=== PATIENT | female | born 1960 | race Caucasian/White ===

== ENCOUNTER → 2018-02-26 12:27 | Outpatient (REF) | payer BC, SELFPAY ==
[2018-02-26 22:09] LABS: ALT 24 U/L (12-78); AST 18 U/L (15-37); Alkaline Phosphatase 63 U/L (46-116); Anion Gap 10.6 mmol/L (3-11); BUN 11 mg/dL (7-18); Bilirubin, Total 0.5 mg/dL (0.2-1.0); CO2 26.4 mmol/L (21.0-32.0); CREATININE 0.69 mg/dL (0.55-1.02); Calcium 8.8 mg/dL (8.5-10.1); Chloride 103 mmol/L (98-107); Glucose 92 mg/dL (70-100); Potassium 4.1 mmol/L (3.5-5.1); Sodium 140 mmol/L (136-145); Total Protein 7.3 g/dL (6.4-8.2)
[2018-02-26 22:37] LABS: Amylase 38 U/L (25-115); Lipase 133 U/L (73-393)
[2018-02-26 22:41] LABS: Abs Immature Grans 0.01 k/cumm (0.0-0.09); Absolute Basophil Count 0.03 k/cumm (0.0-0.2); Absolute Eosinophil Count 0.04 k/cumm (0.0-0.7); Absolute Lymphocyte Count 2.36 k/cumm (1.2-3.4); Absolute Monocyte Count 0.33 k/cumm (0.11-0.7); Absolute Neutrophil Count 2.91 k/cumm (1.2-6.7); Basophils % 0.5; Eosinophils % 0.7; HCT 39.7 % (36.0-46.0); HGB 13.6 g/dL (12.0-15.5); Immature Grans % 0.2; Lymphocytes % 41.5; Mean Corp. HGB Concentration 34.3 g/dL (32.0-36.0); Mean Corpuscular Hemoglobin 31.5 pg (27.0-33.0); Mean Corpuscular Volume 91.9 fL (80-95); Mean Platelet Volume 10.9 fL (8.0-11.0); Monocytes % 5.8; Neutrophils % 51.3; Platelet Count 218 x1000/uL (130-400); RBC 4.32 m/cumm (4.00-5.20); White Blood Cell Count 5.68 k/cumm (4.4-10.8)
== END ==
LOC: NCHCN 12:27
PROVIDERS: Visit Provider Nurse Practitioner Family
DX: R51 Headache (principal); R10.9 Unspecified abdominal pain; R10.11 Right upper quadrant pain; G47.00 Insomnia, unspecified
CPT/HCPCS: 80053; 83690; 82150; 85025

== ENCOUNTER → 2018-03-03 00:21 | Outpatient (CLI) | payer BC, SELFPAY ==
--- NOTE | 2018-03-03 10:29 | DI.REPORT_ITS ---
SYMPTOM/DIAGNOSIS: RUQ ABD PAIN, R10.11, RT FLANK PAIN R10.9 ABDOMINAL, RENAL ULTRASOUND: Routine examination was performed. Comparison is . Comparison MRI is The abdominal aortic is ectatic measuring 2.9 cm maximal. The IVC is unremarkable. The liver is normal in size. There is a 1.4 x 17 x 1.4 cm simple cyst at the right lobe. No other hepatic lesions are seen. The gallbladder is negative sonographically. There is no biliary ductal dilatation. The common duct measures 0.5 cm. The tail of the pancreas was not visualized due to overlying bowel. The remainder of the pancreas was unremarkable. The spleen is unremarkable. The kidneys are unremarkable. The urinary bladder pre-void volume is 211 cc. The bladder wall is smooth. Both ureteral jets were identified. Post void urinary bladder volume was less than 10 cc. IMPRESSION: 1. No evidence of a renal mass or obstructive uropathy. 2. 1.7 cm simple right hepatic cyst.
== END ==
PROVIDERS: Visit Provider Nurse Practitioner Family
DX: R10.11 Right upper quadrant pain (principal); R10.31 Right lower quadrant pain; K76.89 Other specified diseases of liver
CPT/HCPCS: 76770; 76700

== ENCOUNTER 2018-09-01 09:16 | Outpatient (REF) | payer BC, SELFPAY ==
[2018-09-01 13:25] LABS: ALT 23 U/L (12-78); AST 21 U/L (15-37); Albumin 4.1 g/dL (3.4-5.0); Alkaline Phosphatase 64 U/L (46-116); Anion Gap 7.4 mmol/L (3-11); BUN 15 mg/dL (7-18); Bilirubin, Total 0.8 mg/dL (0.2-1.0); CO2 30.6 mmol/L (21.0-32.0); CREATININE 0.77 mg/dL (0.55-1.02); Calcium 9.6 mg/dL (8.5-10.1); Chloride 101 mmol/L (98-107); Glucose 88 mg/dL (70-100); Lipase 141 U/L (73-393); Magnesium 1.9 mg/dL (1.8-2.4); Potassium 4.4 mmol/L (3.5-5.1); Sodium 139 mmol/L (136-145); Total Protein 7.7 g/dL (6.4-8.2)
[2018-09-01 14:13] LABS: Vitamin B12 590 pg/mL (193-986)
[2018-09-02 11:49] LABS: Lyme Ab w Rflx to Lyme Confirm Negative
== END 2018-09-01 09:36 ==
LOC: NCHCN 09:16
PROVIDERS: Visit Provider Nurse Practitioner Family
DX: R51 Headache (principal); K21.9 Gastro-esophageal reflux disease without esophagitis; K76.89 Other specified diseases of liver; G47.00 Insomnia, unspecified; M54.5 Low back pain; W57.XXXA Bitten or stung by nonvenomous insect and other nonvenomous arthropods, initial encounter; T14.8XXA Other injury of unspecified body region, initial encounter
CPT/HCPCS: 80053; 83690; 82607; 83735; 86618

== ENCOUNTER 2018-09-08 01:58 | Outpatient (CLI) | payer BC, SELFPAY ==
--- NOTE | 2018-09-08 10:48 | DI.MAMMO_ITS ---
SYMPTOM/DIAGNOSIS: SCREENING, Z12.31 MAMMOGRAMS: Mammograms were interpreted according to the usual protocol including computer analysis with CAD system, tomosynthesis and C view imaging. Comparison is made with prior examinations. Breast density, Category C. No suspicious masses or microcalcifications are seen. There is no definite evidence of malignancy. IMPRESSION: Negative mammogram. Routine screening is recommended. Category 1. MQSA ASSESSMENT OF FINDINGS: Negative. Category 1. Patient will receive a letter notifying them of these results. Bi-RADS category C. The breasts are heterogeneously dense, which may obscure small masses.
== END 2018-09-08 02:18 ==
PROVIDERS: PCP Internal Medicine; Visit Provider Nurse Practitioner Family
DX: Z12.31 Encounter for screening mammogram for malignant neoplasm of breast (principal)
CPT/HCPCS: 77063; 77067

== ENCOUNTER 2018-12-01 15:07 | Outpatient (REF) | payer BC, SELFPAY | END 2018-12-01 15:27 | LOC: NCHCN 15:07 | PROVIDERS: PCP Internal Medicine; Visit Provider Specialist/Technologist Athletic Trainer | DX: J02.9 Acute pharyngitis, unspecified (principal) | CPT/HCPCS: 87070 ==

== ENCOUNTER 2019-03-16 01:04 | Outpatient (CLI) | payer BC, SELFPAY ==
--- NOTE | 2019-03-16 07:38 | DI.US_ITS ---
SYMPTOM/DIAGNOSIS: LIVER CYST, K76.89 ABDOMINAL ULTRASOUND: 03/16 The visualized liver parenchyma is normal in appearance with incidental finding of two hepatic cysts, both in the right lobe, the largest in the dome of the liver measuring about 19 mm in greatest diameter. There is no evidence of cholelithiasis or biliary dilatation. Abdominal aorta and IVC are of normal diameter. Pancreas appears intact as visualized. Kidneys and spleen appear normal. CONCLUSION: Negative abdominal ultrasound. No evidence of cholelithiasis.
== END 2019-03-16 01:24 ==
PROVIDERS: PCP Internal Medicine; Visit Provider Nurse Practitioner Family
DX: K76.89 Other specified diseases of liver (principal)
CPT/HCPCS: 76700

== ENCOUNTER 2019-05-04 01:39 | Outpatient (CLI) | payer BC, SELFPAY ==
--- NOTE | 2019-05-04 17:21 | DI.DEXA_ITS ---
EXAM: XR DEXA BONE DENSITY W/WO RAJIV INDICATION: OSTEOPENIA M85.80. TECHNIQUE: 2D digital imaging was performed. FINDINGS: The scanogram is unremarkable. For the left hip, a T-score of -1.0 and a Z-score of 0 indicate osteopenia and an increased fracture risk and when compared with the prior study of 08/16/2014, there has been an interval -3.9 percent dec rease in mineralization. For the lumbar spine, a T-score -1.7 and a Z-score -0.2 indicate osteopenia and an increased fracture risk and represent a -0.6 percent interval decrease in mineralization when compared with the prior study of 08/16/2014. For the left hip, a T-score of -1.0 and a Z-score of 0 are consistent with osteopenia and a -3.9 percent interval decrease in mineralization. For the left forearm ,T-score -1.6 and a Z-score of -0.3 are consistent with normal mineralization.
== END 2019-05-04 01:59 ==
PROVIDERS: PCP Internal Medicine; Visit Provider Nurse Practitioner Family
DX: M85.88 Other specified disorders of bone density and structure, other site (principal)
CPT/HCPCS: 77080

== ENCOUNTER 2019-11-01 10:58 | Emergency (ER) | payer BC, SELFPAY ==
[2019-11-01] VITALS (16 sets, daily range): BP systolic 114–180; BP diastolic 80–105; PULSE 66–87; RESP 12–20; TEMP 36.6; O2SAT 95–99
--- NOTE | 2019-11-01 11:09 | ED.GENADUL_ITS ---
Discharge Plan Disposition Patient Disposition: HOME Condition: Improving Discharge Details Chief Complaint: Chest Pain Clinical Impression: Viral upper respiratory illness, Pleurisy Primary Care Provider: Halie Graham ED Provider: José Miguel Ariza Home Meds and New Rx's Prescriptions: Continued calcium carbonate [Calcium 500] 500 MG tablet 500 mg PO DAILY RF: 0 cholecalciferol (vitamin D3) [Vitamin D3] 400 UNIT capsule 400 unit PO DAILY RF: 0 Daily Multiple 1 EACH tablet 1 tab-cap PO DAILY RF: 0 melatonin 3 MG tablet 3 mg PO PRN RF: 0 omeprazole 20 MG capsule,delayed release(DR/EC) 20 mg PO DAILY RF: 0 zolpidem [Ambien CR] 6.25 MG tablet,ext release multiphase 6.25 mg PO HS RF: 0 amitriptyline 50 MG tablet 50 mg PO HS Qty: 30 RF: 3 ibuprofen 200 MG tablet 1 tab PO PRN PRNRF: 0 Discharge Instructions Instructions: Pleurisy (ED), Upper Respiratory Infection (ED) Additional Instructions: Please proceed to the outpatient coded testing tent. Please follow-up in clinic with Tasha Graham for recheck in the next 5 to 10 days time. Home to rest today. Small, frequent sips of fluid so that you maintain hydration. Tylenol and ibuprofen as needed for pain. Continue your regularly prescribed medications and finish the previously prescribed course of the doxycycline. Stand Alone Forms: POSITIVE COVID-19/TO BE TESTED Medical Decision Making 59-year-old female presents from home. She feels she has had an upper respirat ory illness is approximately second week of September. She was exposed to her son who traveled to [place] for sporting event and then developed a fever. She states she did have some initial upper respiratory symptoms with sinus drainage and some production of green sputum. This then progressed to some achy anterior chest pain over the past few days. She was placed on doxycycline by her outpatient clinic 6 days ago. She arrives to the ER afebrile with unremarkable vital signs and normal oxygenation. Differential diagnosis includes pneumonitis, viral syndrome, must exclude ACS or PE. Patient IV access established, she was referred for chest x-ray and laboratories. EKG is reassuring. Diagnostic studies: CBC unremarkable, chemistries reassuring, troponin initially negative, lipase 98. D-dimer negative at 225. Chest x-ray without acute findings, see formal report. Patient improving without significant intervention. Patient observed and repeat troponin obtained and negative. Patient is improved, she is appropriate for outpatient management. She may have persistent pleurisy from adequately treated pneumonitis and will have her finish the course of doxycycline. She will mandate ongoing surveillance as an outpatient. Outpatient coronavirus testing ordered. Lab Data Lab results reviewed: Yes I reviewed the patient's lab results. Labs: Laboratory Results - last 24 hr 11/01/19 11/01/19 11/01/19 11:24 11:24 11:24 WBC 5.27 RBC 4.48 Hgb 14.5 Hct 40.8 MCV 91.1 MCH 32.4 MCHC 35.5 RDW 12.2 Plt Count 239 MPV 10.2 Immature Gran % 0.2 Neutrophils % 56.9 Lymphocytes % 34.7 Monocytes % 7.6 Eosinophils % 0.2 Basophils % 0.4 Absolute Neutrophils 3.00 Absolute Lymphocytes 1.83 Absolute Monocytes 0.40 Absolute Eosinophils 0.01 Absolute Basophils 0.02 D-Dimer Sodium 136 Potassium 3.6 Chloride 99 Carbon Dioxide 26.9 Anion Gap 10.1 BUN 12 Creatinine 0.81 Estimated GFR/1.73 m2 >= 60.00 Glucose 109 H Calcium 9.6 Magnesium 1.8 Total Bilirubin 0.9 AST 20 ALT 27 Alkaline Phosphatase 65 Troponin I < 0.05 Total Protein 8.3 H Albumin 4.7 Lipase 98 11/01/19 11:24 WBC RBC Hgb Hct MCV MCH MCHC RDW Plt Count MPV Immature Gran % Neutrophils % Lymphocytes % Monocytes % Eosinophils % Basophils % Absolute Neutrophils Absolute Lymphocytes Absolute Monocytes Absolute Eosinophils Absolute Basophils D-Dimer 225 Sodium Potassium Chloride Carbon Dioxide Anion Gap BUN Creatinine Estimated GFR/1.73 m2 Glucose Calcium Magnesium Total Bilirubin AST ALT Alkaline Phosphatase Troponin I Total Protein Albumin Lipase ECG Data Attestation: I personally reviewed and interpreted this ECG (s) as follows: Interpretation: EKG obtained at 1113 hrs. reveals normal sinus rhythm with a rate of 77, the QRS is narrow, there is T wave inversions in leads III and aVF as well as V3. This was present on previous comparison of January 11, 2015 in which the T wave inversions of V3 and lead III were present. There is no ST segment elevation HPI General Mode of arrival: ambulatory . Date/Time Provider Initiated Documentation: 11/01/19 11:00 . Limitations to Documentation: no limitations . Information obtained by: patient . History of Present Illness 59 year old F presents to the emergency department with the chief complaint of URI symptoms since September, on doxycycline, referred from primary care office, described as moderate, Quality is described as dull, and is localized to the chest. Patient reports no radiation. Patient started experiencing this day(s) and it has been constant. No relieving factors improve symptom(s), No exacerbating factors reported . Patient notes chest pain, cough and shortness of breath. Patient did receive the following treatments prior to arrival, other (Doxycycline) Related Data Home Medications Medication Instructions Recorded Confirmed Daily Multiple 1 tab-cap PO DAILY tab-cap 04/26/13 11/01/19 calcium carbonate [Calcium 500] 500 mg PO DAILY 04/26/13 11/01/19 cholecalciferol (vitamin D3) 400 unit PO DAILY 04/26/13 11/01/19 [Vitamin D3] melatonin 3 mg PO PRN 10/07/14 11/01/19 ibuprofen 1 tab PO PRN PRN 12/30/14 11/01/19 omeprazole 20 mg PO DAILY tab-cap 04/15/17 11/01/19 zolpidem [Ambien CR] 6.25 mg PO HS 04/15/17 11/01/19 amitriptyline 50 mg PO HS #30 tab-cap 07/01/17 11/01/19 Previous Rx's Medication Instructions Recorded amitriptyline 50 mg PO HS #30 tab-cap 07/01/17 Allergies Allergy/AdvReac Type Severity Reaction Status Date / Time venom-honey bee Allergy Intermediate Hives Verified 11/01/19 11:29 trazodone Allergy Mild Verified 11/01/19 11:29 narcotics Allergy Mild Nausea Uncoded 11/01/19 11:29 Review of Systems Narrative: Began after sick contact with family member who had gone to [place] in early September. See HPI, reports self quarantine, no known sick contacts. 8 systems reviewed and otherwise negative [facility] Medical History (Updated 11/01/19 @ 14:42 by José Miguel Ariza MD) Atrophic vaginitis (Acute 08/09/14) Barretts esophagus Barretts esophagus (Acute 08/09/14) Chronic low back pain (Acute 08/09/14) Family history of osteoporosis (Acute 08/09/14) First degree uterine prolapse (Acute 10/07/14) Pancreatitis (Resolved) Surgical History (Updated 05/13/18 @ 14:35 by [employer] DC) Colonoscopy - MAC EGD - MAC Tonsillectomy and adenoidectomy Social History Smoking/Tobacco Use Status: Never Alcohol Intake: current Alcohol Intake frequency: 0-2 drinks per day Drug use: Never Substance use type: does not use Do you feel safe at home: Yes Do you feel safe in your relationship?: Yes Exam Narrative Exam Narrative: GEN: awake, alert, oriented 3. Pleasant, well groomed, interactive. HEAD: Normocephalic, atraumatic ENT: Mucous membranes moist, oropharynx unremarkable, External ear exam unremarkable EYES: PERRL, EOMI NECK: Full ROM, no TRISTIN, no menigismus CHEST/RESP: Nontender, clear to auscultation bilateral, no wheeze/rhonchi/rales CARDIOVASCULAR: RRR, no murmur, rub lavelle. 2+ Rad pulse bilateral ABDOMEN: Soft, nontender, no mass. +Bowel sounds EXT: Full ROM, no edema, no rash Neuro: Grossly normal neurologic exam, conversant, interactive. Psych: Speech fluent, thoughts congruent, affect normal
--- NOTE | 2019-11-01 11:15 | DI.RAD_ITS ---
EXAM: XR PORTABLE CHEST AP CLINICAL HISTORY: cough, chest pain TECHNIQUE: COMPARISON: CHEST 2 VIEWS PA,LAT from 12/01/2015 FINDINGS: The heart is not enlarged. The lungs are clear with some pulmonary hyperinflation consistent with CO PD. No pleural effusion seen on this frontal film. IMPRESSION: No evidence of acute process.
--- NOTE | 2019-11-01 11:26 | NUR.NOTE ---
Nursing Note: Pt has been using a chemo cream on right side of neck for concern of precancerous lesion. Pt states has been using this x approx 2 weeks. Does not recall cream name.
[2019-11-01] MEDS: Normal Saline 1,000 ML 125 ML IV (11:35)
[2019-11-01 11:49] LABS: Abs Immature Grans 0.01 k/cumm (0.0-0.09); Absolute Basophil Count 0.02 k/cumm (0.0-0.2); Absolute Eosinophil Count 0.01 k/cumm (0.0-0.7); Absolute Lymphocyte Count 1.83 k/cumm (1.2-3.4); Basophils % 0.4; Eosinophils % 0.2; HCT 40.8 % (36.0-46.0); HGB 14.5 g/dL (12.0-15.5); Immature Grans % 0.2 %; Lymphocytes % 34.7; Mean Corp. HGB Concentration 35.5 g/dL (32.0-36.0); Mean Corpuscular Hemoglobin 32.4 pg (27.0-33.0); Mean Corpuscular Volume 91.1 fL (80-95); Mean Platelet Volume 10.2 fL (8.0-11.0); Monocytes % 7.6; Neutrophils % 56.9; Platelet Count 239 x1000/uL (130-400); RBC 4.48 m/cumm (4.00-5.20); RBC Distribution Width 12.2 % (11.7-14.6); White Blood Cell Count 5.27 k/cumm (4.4-10.8)
[2019-11-01 12:03] LABS: ALT 27 U/L (14-59); AST 20 U/L (15-37); Albumin 4.7 g/dL (3.4-5.0); Alkaline Phosphatase 65 U/L (46-116); Anion Gap 10.1 mmol/L (3-11); BUN 12 mg/dL (7-18); Bilirubin, Total 0.9 mg/dL (0.2-1.0); CO2 26.9 mmol/L (21.0-32.0); CREATININE 0.81 mg/dL (0.55-1.02); Calcium 9.6 mg/dL (8.5-10.1); Chloride 99 mmol/L (98-107); Glucose 109 mg/dL (74-106); Magnesium 1.8 mg/dL (1.8-2.4); Potassium 3.6 mmol/L (3.5-5.1); Sodium 136 mmol/L (136-145); Total Protein 8.3 g/dL (6.4-8.2)
[2019-11-01 12:06] LABS: Troponin I < 0.05 ng/Ml (<0.06)
[2019-11-01 12:12] LABS: Lipase 98 U/L (73-393)
[2019-11-01 12:26] LABS: D-Dimer 225 ng/mlFEU (<500)
[2019-11-01 14:38] LABS: Troponin I < 0.05 ng/Ml (<0.06)
== END 2019-11-01 15:03 | disposition home or self-care (01) ==
PROVIDERS: Emergency Provider Emergency Medicine; PCP Nurse Practitioner Family
DX: J06.9 Acute upper respiratory infection, unspecified (principal); R09.1 Pleurisy
CPT/HCPCS: 80053; 83690; 93005; 99284; U0003; 71045; 83735; 84484; 85025; 85379; 93010; 99283

== ENCOUNTER 2019-11-01 15:33 | Outpatient (CLI) | payer BC, SELFPAY ==
[2019-11-03 20:04] LABS: SARS-CoV-2 RNA Undetected (Undetected); SARS-CoV-2 Specimen Source Nasopharynx
== END 2019-11-01 15:53 ==
PROVIDERS: PCP Nurse Practitioner Family; Visit Provider Nurse Practitioner Family
DX: Z11.59 Encounter for screening for other viral diseases (principal)
CPT/HCPCS: U0003

== ENCOUNTER 2019-12-30 00:53 | Outpatient (CLI) | payer BC, SELFPAY ==
--- NOTE | 2019-12-30 | DI.RAD_ITS ---
EXAM: XR CHEST 2V PA LATERAL CLINICAL HISTORY: PULMONARY HYPERINFLATION,J98.4,CHEST DISCOMFORT,R07.89 TECHNIQUE: 2D digital imaging was performed. COMPARISON: CR XR PORTABLE CHEST AP from 11/01/2019 FINDINGS: The heart is not enlarged. The lungs are clear and well expanded. No pleural effusion seen. Mediastin al contours appear intact. IMPRESSION: Normal chest
== END 2019-12-30 01:13 ==
PROVIDERS: PCP Nurse Practitioner Family; Visit Provider Nurse Practitioner Family
DX: R07.89 Other chest pain (principal); J98.4 Other disorders of lung
CPT/HCPCS: 71046

== ENCOUNTER 2020-03-14 10:08 | Outpatient (REF) | payer BC, SELFPAY ==
[2020-03-14 22:58] LABS: ALT 21 U/L (14-59); AST 16 U/L (15-37); Albumin 4.4 g/dL (3.4-5.0); Alkaline Phosphatase 71 U/L (46-116); Anion Gap 11.2 mmol/L (3-11); BUN 12 mg/dL (7-18); Bilirubin, Total 0.9 mg/dL (0.2-1.0); CO2 26.8 mmol/L (21.0-32.0); CREATININE 0.69 mg/dL (0.55-1.02); Calcium 9.5 mg/dL (8.5-10.1); Chloride 103 mmol/L (98-107); Glucose 92 mg/dL (74-106); Potassium 4.2 mmol/L (3.5-5.1); Sodium 141 mmol/L (136-145); Total Protein 7.7 g/dL (6.4-8.2)
[2020-03-14 23:12] LABS: Amylase 37 U/L (25-115); Lipase 108 U/L (73-393)
[2020-03-16 09:47] LABS: HIV-1/2 Ag & Ab Screen Negative (Negative)
== END 2020-03-14 10:28 ==
LOC: NCHCN 10:08
PROVIDERS: PCP Nurse Practitioner Family; Visit Provider Nurse Practitioner Family
DX: K21.9 Gastro-esophageal reflux disease without esophagitis (principal); J98.4 Other disorders of lung; J02.9 Acute pharyngitis, unspecified; R07.89 Other chest pain; R05 Cough; M54.5 Low back pain; R51 Headache; G47.00 Insomnia, unspecified; Z11.4 Encounter for screening for human immunodeficiency virus [HIV]
CPT/HCPCS: 80053; 83690; 87389; 82150

== ENCOUNTER 2020-04-12 13:43 | Outpatient (REF) | payer BC, SELFPAY ==
[2020-04-15 08:37] LABS: Patient Race White; SARS-CoV-2 RNA Undetected (Undetected); SARS-CoV-2 Specimen Source Nasal
== END 2020-04-12 14:03 ==
LOC: NCHCN 13:43
PROVIDERS: PCP Nurse Practitioner Family; Visit Provider Nurse Practitioner Family
DX: Z20.828 Contact with and (suspected) exposure to other viral communicable diseases (principal)
CPT/HCPCS: U0003

== ENCOUNTER 2020-05-18 11:28 | Outpatient (REF) | payer BC, SELFPAY ==
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
== END 2020-05-18 11:48 ==
LOC: LBN 11:28
PROVIDERS: PCP Nurse Practitioner Family; Visit Provider Nurse Practitioner Family
DX: Z12.4 Encounter for screening for malignant neoplasm of cervix (principal)
CPT/HCPCS: 88142

== ENCOUNTER 2020-05-30 16:17 | Outpatient (REF) | payer BC, SELFPAY | END 2020-05-30 16:37 | LOC: NCHCN 16:17 | PROVIDERS: PCP Nurse Practitioner Family; Visit Provider Nurse Practitioner Family | DX: R30.0 Dysuria (principal) | CPT/HCPCS: 87077; 87086; 87186 ==

== ENCOUNTER 2020-05-31 01:19 | Outpatient (CLI) | payer BC, SELFPAY ==
--- NOTE | 2020-05-31 15:44 | DI.MAMMO_ITS ---
EXAM: MG MAMMO SCREENING CLINICAL HISTORY: screening TECHNIQUE: Bilateral full field digital CC and MLO mammographic images were obtained with 3D tomosyn thesis and utilizing computer aided detection (CAD). COMPARISON: Available for comparison. FINDINGS: Masses/Architectural Distortion: None seen. Microcalcifications: No suspicious pleomorphic-type are seen. Skin Thickening/Nipple Retraction: None. IMPRESSION: 1. No significant interval change with no specific features of malignancy noted. 2. Unless there is more urgent need, screening mammography is recommended, as per [place] [employer] guidelines. BI-RADS Category 1 - Negative Breast Density - Category C - Heterogeneously dense The mammogram demonstrates the patient's breast tissue is dense. Dense breast tissue is very common a nd is not abnormal but dense breast tissue can make it harder to find cancer on a mammogram. Also, de nse breast tissue may increase their breast cancer risk. This information about the result of the [facility] mogram report was provided to the patient to raise their awareness. Use this report when you speak wi th the patient about their risks for breast cancer, which includes their family history. At that time , you may recommend for more screening tests (Ultrasound or MRI) as they might be useful based on the ir risk. A negative radiographic report should not delay biopsy if a dominant or clinically suspicious mass is present. Up to ten percent of cancers are not identified on mammography. A negative report may reinforce clinical impression. Adenosis and dense breasts may obscure an underlying neoplasm. False positive reports average 6 to 10%. Patient will receive a letter notifying them of these results.
== END 2020-05-31 01:39 ==
PROVIDERS: PCP Nurse Practitioner Family; Visit Provider Nurse Practitioner Family
DX: Z12.31 Encounter for screening mammogram for malignant neoplasm of breast (principal)
CPT/HCPCS: 77063; 77067

== ENCOUNTER 2020-06-13 00:42 | Outpatient (CLI) | payer BC, SELFPAY ==
--- NOTE | 2020-06-13 06:45 | DI.US_ITS ---
EXAM: US PELVIS TRANSVAGINAL CLINICAL HISTORY: Pelvic Cramping and pelvic pain,r10.2. TECHNIQUE: Transabdominal and transvaginal pelvic ultrasound was performed using standard protocol. COMPARISON: US PELVIS TRANSVAG from 05/11/2013 FINDINGS: KIDNEYS: Kidneys are symmetric in size. No evidence of renal calculi. No evidence of hydronephrosis. No renal mass or cyst identified. UTERUS: Position: Anteverted. Size: 6.2 long by 2.7 AP by 4.5 transverse cm Endometrium: 0.1 cm. Normal for patient's menstrual status. Myometrium: 2.4 x 2 x 2.3 cm hypoechoic mass in the posterior body of the uterus consistent with a fi broid. Cervix: There is a 0.7 x 0.8 x 1 cm ill-defined hypoechoic area in the cervix. It shows no internal blood flow. OVARIES: Right: 2 x 1.2 x 1 cm Cyst or mass: None. Left: 1.4 x 0.8 x 0.9 cm Cyst or mass: None. DOPPLER: Color: Symmetric and uniform flow to both ovaries. No hyperemia. CUL-DE-SAC: Free fluid: None. Other: None. IMPRESSION: 1. Normal sonographic appearance of the kidneys. 2. 2.4 cm posterior uterine fibroid. 3. 1 cm ill-defined avascular hypoechoic area in the cervix. Follow-up is recommended. This may rep resent a repeat pelvic ultrasound or an MRI of the pelvis. 4. Unremarkable bilateral ovaries. DATA REPOSITORY:
== END 2020-06-13 01:02 ==
PROVIDERS: PCP Nurse Practitioner Family; Visit Provider Nurse Practitioner Family
DX: D25.9 Leiomyoma of uterus, unspecified (principal); R10.2 Pelvic and perineal pain
CPT/HCPCS: 76830; 76856

== ENCOUNTER 2020-06-15 13:50 | Outpatient (REF) | payer BC, SELFPAY | END 2020-06-15 14:10 | LOC: NCHCN 13:50 | PROVIDERS: PCP Nurse Practitioner Family; Visit Provider Nurse Practitioner Family | DX: R30.0 Dysuria (principal) | CPT/HCPCS: 87086 ==

== ENCOUNTER 2020-09-19 21:48 | Outpatient (REF) | payer BC, SELFPAY ==
[2020-09-19 13:44] LABS: HCT 39.7 % (36.0-46.0); HGB 13.5 g/dL (11.2-15.7)
[2020-09-19 14:18] LABS: ALT 23 U/L (14-59); AST 17 U/L (15-37); Albumin 4.1 g/dL (3.4-5.0); Alkaline Phosphatase 59 U/L (46-116); BUN 14 mg/dL (7-18); Bilirubin, Total 0.7 mg/dL (0.2-1.0); CREATININE 0.8 mg/dL (0.55-1.02); Calcium 9.2 mg/dL (8.5-10.1); Calculated LDL 114 mg/dL (<100); Chloride 103 mmol/L (98-107); Cholesterol 213 mg/dL (<200); Glucose 89 mg/dL (74-106); HDL Cholesterol 89 mg/dL (40-60); Potassium 4.3 mmol/L (3.5-5.1); Sodium 140 mmol/L (136-145); Total Protein 7.4 g/dL (6.4-8.2); Triglyceride 53 mg/dL (<150); Vitamin B12 553 pg/mL (193-986)
[2020-09-19 14:33] LABS: Lipase 133 U/L (73-393)
[2020-09-21 04:40] LABS: Vitamin D 25 Total 37.3 ng/ml (30-100)
== END 2020-09-19 21:49 | disposition home or self-care (01) ==
LOC: NCHCN 21:48
PROVIDERS: PCP Nurse Practitioner Family; Visit Provider Nurse Practitioner Family
DX: E78.5 Hyperlipidemia, unspecified (principal); K21.9 Gastro-esophageal reflux disease without esophagitis; R51.9 Headache, unspecified; G47.00 Insomnia, unspecified; R30.0 Dysuria; R19.7 Diarrhea, unspecified; J02.9 Acute pharyngitis, unspecified; M54.5 Low back pain
CPT/HCPCS: 80053; 80061; 82306; 83690; 82607; 83735; 85014; 85018

== ENCOUNTER 2020-09-29 14:02 | Outpatient (REF) | payer BC, SELFPAY ==
[2020-09-30 16:55] LABS: COVID-19 RT-PCR UVMMC Result Negative (Negative)
== END 2020-09-29 14:03 | disposition home or self-care (01) ==
LOC: NCHCN 14:02
PROVIDERS: PCP Nurse Practitioner Family; Visit Provider Nurse Practitioner Family
DX: Z20.822 Contact with and (suspected) exposure to COVID-19 (principal)
CPT/HCPCS: U0003

== ENCOUNTER 2020-11-03 03:25 | Outpatient (CLI) | payer BC, SELFPAY ==
--- NOTE | 2020-11-03 07:30 | DI.US_ITS ---
EXAM: MG MAMMO DIAGNOSTIC UNI and U/S breast LT limited CLINICAL HISTORY: LT BREAST PAIN. TECHNIQUE: Craniocaudal and mediolateral oblique Full Field Digital Mammography views with Computer Aided Diagnosis followed by Tomosynthesis and left breast ultrasound. COMPARISON: Comparison with prior examinations. FINDINGS: Mammography/Tomosynthesis: Masses/Architectural Distortion: None seen. Microcalcifictions: No suspicious pleomorphic-type are seen. Skin Thickening/Nipple Retraction: None. Left breast US: Echotexture: Normal appearance of the glandular tissue. Shadowing: No suspicious foci. Cyst: None. Solid lesions: None seen. Ductal dilation: None. IMPRESSION: 1. No evidence of malignancy is noted. 2. Unless there is more urgent need, follow-up screening mammography is recommended, as per [employer] guidelines. 3. The findings were discussed with the patient on the date of the examination. BI-RADS Category 1 - Negative Breast Density - Category C - Heterogeneously dense Breast density Category C or D implies that the patient has dense breast tissue. Dense breast tissue can make it harder to find cancer on a mammogram. Dense breast tissue is also associated with an incr eased risk of breast cancer. This information about the result of the mammogram report was provided to the patient to raise their awareness. Use this report when you speak with the patient about their risks for breast cancer, which includes their family history. At that time, you may recommend additional screening tests (Ultrasoun d or MRI) as these tests may add significant information. A negative radiographic report should not delay biopsy if a dominant or clinically suspicious mass is present. Up to ten percent of cancers are not identified on mammography. A negative report may reinforce clinical impression. Adenosis and dense breasts may obscure an underlying neoplasm. False positive reports average 6 to 10%. Patient will receive a letter notifying them of these results.
== END 2020-11-03 03:45 ==
PROVIDERS: PCP Nurse Practitioner Family; Visit Provider Obstetrics & Gynecology
DX: N64.4 Mastodynia (principal)
CPT/HCPCS: 76642; 77061; 77065; G0279

== ENCOUNTER 2021-02-27 15:07 | Outpatient (REF) | payer BC, SELFPAY ==
[2021-02-28 15:32] LABS: COVID-19 RT-PCR UVMMC Result Negative (Negative)
== END 2021-02-27 15:08 | disposition home or self-care (01) ==
LOC: NCHCN 15:07
PROVIDERS: PCP Nurse Practitioner Family; Visit Provider Nurse Practitioner Family
DX: Z20.822 Contact with and (suspected) exposure to COVID-19 (principal)
CPT/HCPCS: U0003

== ENCOUNTER 2021-04-03 01:16 | Outpatient (CLI) | payer BC, SELFPAY ==
--- NOTE | 2021-04-03 | DI.DEXA_ITS ---
Exam(s) XR DEXA BONE DENSITY W/WO RAJIV EXAM: XR DEXA BONE DENSITY W/WO RAJIV CLINICAL HISTORY: OSTEOPENIA,M85.80 TECHNIQUE: IPextreme C densitometer COMPARISON: DX DEXA BONE DENSITY WITH RAJIV from 08/16/2014 DX DEXA BONE DENSITY WITH RAJIV from 08/16/2014 CR XR DEXA BONE DENSITY W/WO RAJIV from 05/04/2019 FINDINGS: Lateral view of the thoracic and lumbar spine shows no evidence of compression fractures. Bone mineral density measurements of the lumbar spine correspond to a total T-score of -1.8, consist ent with osteopenia. This is not significantly changed from the previous exams. Bone mineral density measurements of the left hip correspond to a total T-score of -1.2 . The femora l neck T-score is -1.8 in the osteopenic range. This represents a 2.3 percent decrease when compar ed with 2018 and a 6.2 percent decrease when compared with 2014. The FRAX 10 year fracture risk of major osteoporotic fracture is calculated at 8.8 percent. The 10 y ear risk of hip fracture is calculated at 1 percent. The left forearm bone mineral density measurements correspond to a T-score of the distal 3rd of -0.6, in the normal range. This is not significantly changed from previous exams. . IMPRESSION: Stable osteopenia of the lumbar spine. Osteopenia of the left hip with mild decrease when compared w ith the previous exams.
== END 2021-04-03 01:36 ==
PROVIDERS: PCP Nurse Practitioner Family; Visit Provider Nurse Practitioner Family
DX: M85.89 Other specified disorders of bone density and structure, multiple sites (principal)
CPT/HCPCS: 77080

== ENCOUNTER 2021-06-13 00:24 | Outpatient (CLI) | payer BC, SELFPAY ==
--- NOTE | 2021-06-13 06:30 | DI.MAMMO_ITS ---
Exam(s) MAMMO SCREENING EXAM: MAMMO SCREENING CLINICAL HISTORY: screening,Z12.39 TECHNIQUE: Mammograms were interpreted according to the usual protocol including computer analysis w [employer] CAD system, tomosynthesis and C-view imaging. COMPARISON: FINDINGS: The breasts are heterogeneously dense. No dominant mass or clumped microcalcification is identified in either breast. The current examination is compared with previous examinations including May 2020 and there has been no gross interval change in appearance comparison with previous studies. IMPRESSION: No specific evidence of malignancy at this time. Routine screening examinations are suggested at yea rly intervals due to the family history of breast carcinoma. BI-RADS Category 1 - Negative Breast Density - Category C - Heterogeneously dense
== END 2021-06-13 00:44 ==
PROVIDERS: PCP Nurse Practitioner Family; Visit Provider Obstetrics & Gynecology
DX: Z12.31 Encounter for screening mammogram for malignant neoplasm of breast (principal); Z80.3 Family history of malignant neoplasm of breast
CPT/HCPCS: 77063; 77067

== ENCOUNTER 2021-07-05 09:31 | Outpatient (REF) | payer BC, SELFPAY ==
[2021-07-05 15:21] LABS: ALT 22 U/L (14-59); AST 15 U/L (15-37); Alkaline Phosphatase 76 U/L (46-116); Amylase 30 U/L (25-115); Anion Gap 8.6 mmol/L (3-11); BUN 9 mg/dL (7-18); Bilirubin, Total 0.5 mg/dL (0.2-1.0); CO2 30.4 mmol/L (21.0-32.0); CREATININE 0.7 mg/dL (0.55-1.02); Calcium 9.2 mg/dL (8.5-10.1); Chloride 102 mmol/L (98-107); Glucose 93 mg/dL (74-106); Lipase 64 U/L (73-393); Potassium 3.7 mmol/L (3.5-5.1); Sodium 141 mmol/L (136-145); TSH (W/Ref FT4) 2.24 uIU/mL (0.36-3.74); Total Protein 7.3 g/dL (6.4-8.2)
== END 2021-07-05 09:32 | disposition home or self-care (01) ==
LOC: NCHCN 09:31
PROVIDERS: PCP Nurse Practitioner Family; Visit Provider Nurse Practitioner Family
DX: R11.2 Nausea with vomiting, unspecified (principal); R10.9 Unspecified abdominal pain
CPT/HCPCS: 80053; 83690; 82150; 84443

== ENCOUNTER 2021-07-26 19:09 | Outpatient (REF) | payer BC, SELFPAY ==
[2021-07-27 21:04] LABS: COVID-19 RT-PCR UVMMC Result Negative (Negative)
== END 2021-07-26 19:10 | disposition home or self-care (01) ==
LOC: NCHCN 19:09
PROVIDERS: PCP Nurse Practitioner Family; Visit Provider Nurse Practitioner Family
DX: Z20.822 Contact with and (suspected) exposure to COVID-19 (principal)
CPT/HCPCS: U0003

== ENCOUNTER 2021-09-18 17:20 | Emergency (ER) | payer BC, SELFPAY ==
[2021-09-18] VITALS (14 sets, daily range): BP systolic 121–140; BP diastolic 77–108; PULSE 64–99; RESP 12–22; TEMP 35.8; O2SAT 95–99
--- NOTE | 2021-09-18 17:38 | ED.GENADUL_ITS ---
Discharge Plan Discharge Details Chief Complaint: Allergic Primary Care Provider: Halie Graham ED Provider: Kamala Reilly Home Meds and New Rx's Prescriptions: No Action estradiol [Vagifem] 10 mcg tablet 10 mcg vaginal .twice weekly 90 Days Qty: 30 3RF famotidine [Pepcid] 20 mg tablet 20 mg PO DAILY 0RF Myrbetriq 25 mg tablet extended release 24 hr 25 mg PO DAILY Qty: 90 1RF calcium carbonate [Calcium 500] 500 MG tablet 500 mg PO DAILY 0RF cholecalciferol (vitamin D3) [Vitamin D3] 400 UNIT capsule 400 unit PO DAILY 0RF Daily Multiple 1 EACH tablet 1 tab-cap PO DAILY 0RF fluticasone propionate [Flonase Allergy Relief] 50 mcg/actuation spray,suspension 1 spray intranasal BID 0RF Rx Instructions: administer into each nostril loratadine [Claritin] 10 mg tablet 10 mg PO DAILY 0RF triamcinolone acetonide 0.1 % lotion 1 applic topical DAILY 0RF Metagenics Bone Builderwith Magnesium PO BID 0RF Ostera Bokloywzh-Qvckfewofvxkzz-F-K) 0.5 tab PO BID 0RF zaleplon 10 mg capsule 20 mg PO QHS PRN0RF Rx Instructions: must avoid high-fat meal/food immediately before taking dose ibuprofen 200 MG tablet 1 tab PO PRN PRN0RF Discharge Data Discharge Date/Time-TO BE ENTERED AT DEPARTURE: 09/18/21 19:22 Medical Decision Making Patient is a pleasant 61 year old female presenting today with c/c of allergic reaction. She states that she started Bactrim one hour prior to arrival for UTI. About 15 min after taking the medication PO, she developed bug bites on her abdomen. States she then began to feel stuffy. Denies SOB. No GI upset. States she was sneezing frequently but that this has seemed to subside. HAs not taken any benadryl or OTC yet. No previous reaction to sulfa drugs that she is aware of. On exam, patient appears anxious. She has no respiratory distress. Has some nasal congestion. No intraoral abnormality, no swelling of the posterior oropharynx. Neck is supple with no notable swelling. Lungs are clear with no wheezing, rales or rhonchi. Normal cardiac exam. Patient has 3 small welts on her abdomen, none is noted elsewhere. Patient is scratching at her palms and states that her palms and soles are quite itchy at this time. At this time, patient does not appear to be in anaphylaxis. It has been 1 hour since her medications Reviewed previous micro jhoana yaneli been aragon sensitive. Will change to Keflex, called this into [facility] at patietn request. Will also call in prednisone for her acute reaction. Patient given benadryl, solu-medrol and famotidine. Continue to monitor the patient, her urticaria resolved. Patient is having slight runny nose stilt been stopped with the throat clearing. She reports that overall she is feeling much improved although fatigued, likely from the Benadryl. Lungs remain clear. No continued rash. Patient feels ready for discharge at this time. We will continue with supportive measures including hydration and Benadryl at home. We will continue with steroids to help prevent any recurrent reaction. I have asked the patient to stop the Bactrim and we will transition her to Keflex. As indicated above, these were called into [facility]. Strict return precautions were discussed. Encourage close follow-up with primary care. All of her questions and concerns were addressed and she is in agreement this plan. HPI General Date/Time Provider Initiated Documentation: 09/18/21 17:21 . Limitations to Documentation: no limitations . Information obtained by: patient and RN notes reviewed . History of Present Illness 61 year old F presents to the emergency department with the chief complaint of allergic reaction after first dose of Bactrim, described as moderate, Quality is described as other (itching to hands and feet), and is localized to the abdomen, left, right, upper extremity and lower extremity. Patient started experiencing this hour(s) (1) and it has been constant. improves with No relieving factors improve symptom(s), Medication worsens symptoms . Patient notes denies chest pain and cough. Related Data Home Medications Medication Instructions Recorded Confirmed calcium carbonate 500 mg calcium 500 mg PO DAILY 04/26/13 09/18/21 (1,250 mg) tablet (Calcium 500) cholecalciferol (vitamin D3) 10 400 unit PO DAILY 04/26/13 09/18/21 mcg (400 unit) capsule (Vitamin D3) multivitamin-ferrous 1 tab-cap PO DAILY tab-cap 04/26/13 09/18/21 fumarate-folic acid 18 mg-400 mcg tablet (Daily Multiple) ibuprofen 200 mg tablet 1 tab PO PRN PRN 12/30/14 09/18/21 famotidine 20 mg tablet (Pepcid) 20 mg PO DAILY 05/18/20 09/18/21 estradiol 10 mcg vaginal tablet 10 mcg VAGINAL .twice weekly 90 07/03/20 09/18/21 (Vagifem) Days #30 tab Metagenics Bone Builderwith PO BID 10/04/20 03/20/21 Magnesium Ostera 0.5 tab PO BID 10/04/20 09/18/21 Xisisoomp-Dbqqlgdkanoafm-P-K) fluticasone propionate 50 1 spray INTRANASAL BID 10/04/20 09/18/21 mcg/actuation nasal spray,suspension (Flonase Allergy Relief) loratadine 10 mg tablet (Claritin) 10 mg PO DAILY 10/04/20 09/18/21 triamcinolone acetonide 0.1 % 1 applic TOPICAL DAILY 10/04/20 09/18/21 lotion zaleplon 10 mg capsule 20 mg PO QHS PRN cap 10/04/20 09/18/21 mirabegron 25 mg tablet,extended 25 mg PO DAILY #90 tab 04/23/21 09/18/21 release 24 hr (Myrbetriq) Previous Rx's Medication Instructions Recorded estradiol 10 mcg vaginal tablet 10 mcg VAGINAL .twice weekly 90 07/03/20 (Vagifem) Days #30 tab mirabegron 25 mg tablet,extended 25 mg PO DAILY #90 tab 04/23/21 release 24 hr (Myrbetriq) Allergies Allergy/AdvReac Type Severity Reaction Status Date / Time sulfamethoxazole Allergy Intermediate Hives Unverified 09/18/21 17:51 [From Sulfamethoxazole-Trimethoprim] trimethoprim Allergy Intermediate Hives Unverified 09/18/21 17:51 [From Sulfamethoxazole-Trimethoprim] venom-honey bee Allergy Intermediate Hives Verified 09/18/21 17:27 trazodone Allergy Mild Verified 09/18/21 17:27 codeine Allergy Verified 09/18/21 17:27 oxybutynin AdvReac Verified 09/18/21 17:27 narcotics Allergy Mild Nausea Uncoded 09/18/21 17:27 General Stated Complaint: Allergic HERSON: 2 Review of Systems Constitutional Constitutional: Reports as per HPI, Denies chills, Denies fever(s) and Denies headache(s) Eyes Eyes: Reports as per HPI ENT Ears, Nose, Mouth, and Throat: Reports as per HPI and Denies headache(s) Cardiovascular Cardiovascular: Denies chest pain Respiratory Respiratory: Reports as per HPI Gastrointestinal Gastrointestinal: Reports as per HPI Integumentary/Breasts Skin/Breast: Reports as per HPI Neurologic Neurologic: Denies headache(s) PFSH All Active Problems OAB (overactive bladder) (Acute) Breast pain, left (Acute) Rhinitis (Acute) Lower urinary tract symptoms (LUTS) (Acute) Atopic dermatitis (Acute) Actinic keratosis (Acute) Osteopenia (Acute) Ear pain (Acute) Generalized headaches (Acute) Back pain (Acute) Abdominal cramping (Acute) First degree uterine prolapse (Acute 10/07/14) Atrophic vaginitis (Acute 08/09/14) Barretts esophagus (Acute 08/09/14) Chronic low back pain (Acute 08/09/14) Family history of osteoporosis (Acute 08/09/14) H/O surgical procedure (Chronic) a. bilateral bunionectomies b. tonsillectomy and adenoidectomy c. previous colonoscopies and EGDs Medical History Abdominal cramping Actinic keratosis Atopic dermatitis Atrophic vaginitis (08/09/14) Back pain Barretts esophagus Barretts esophagus (08/09/14) Bladder infection Breast pain, left Chronic low back pain (08/09/14) Ear pain Elevated blood sugar Family history of osteoporosis (08/09/14) First degree uterine prolapse (10/07/14) Generalized headaches Insomnia Lower urinary tract symptoms (LUTS) OAB (overactive bladder) Osteopenia Pancreatitis Rhinitis Sore throat Surgical History Colonoscopy - MAC EGD - MAC Tonsillectomy and adenoidectomy Family History Mother Osteoporosis Father Diabetes Social History Smoking/Tobacco Use Status: Never Smoking risk assessment performed?: Yes Alcohol Intake: current Alcohol Intake frequency: 0-2 drinks per day Drug use: Never Substance use type: does not use Do you feel safe at home: Yes Do you feel safe in your relationship?: Yes Exam Const General: cooperative, well developed, anxious and ill appearing acutely Nutritional Appearance: average body habitus and well nourished Orientation: alert, awake and oriented x3 HENMT Head: normal to inspection Ears: hearing grossly normal bilaterally Face and sinus: normal facial exam Mouth: oral mucosae normal, lip normal, tongue normal, oropharynx normal, moist mucous membranes, no drooling and no muffled voice Teeth and gingiva: dentition normal Throat: posterior oropharynx normal Eyes General: appearance normal, both eyes and all related structures Neck Neck: normal visual inspection, full ROM, no lymphadenopathy, no meningeal signs and trachea midline Chest Chest: normal inspection of the chest Resp Effort & Inspection: normal respiratory effort, able to speak in complete sent ences, no respiratory distress and no use of accessory muscles Auscultation: clear to auscultation bilaterally Other: Clearing her throat frequently, no swelling appreciated intraorally, posterior oropharynx or in neck, no stridor Cardio Rate: regular rate Rhythm: regular rhythm Heart Sounds: S1 normal and S2 normal GI Inspection: other (3 small raised pink areas concerning for urticaria) Palpation: soft, not rigid and nontender Percussion: normal to percussion Auscultation: normal bowel sounds Skin General skin exam: other (urticaria as above) Neuro General: patient alert and patient awake Cognition: normal cognition Speech: speech normal Gait: normal gait Psych Appearance: grossly normal and well kempt Mental Status: mental status grossly normal Speech and Movement: speech and movement normal Course Vital Signs Vital signs: Vital Signs Temperature 35.8 C L 09/18/21 17:22 Pulse 99 H 09/18/21 17:22 Respiratory Rate 18 09/18/21 17:22 Blood Pressure 136/101 H 09/18/21 17:22 Pulse Oximetry 99 09/18/21 17:22 Temperature 35.8 C L 09/18/21 17:22 Temperature Source Temporal Artery Scan 09/18/21 17:22 Pulse 99 H 09/18/21 17:22 Respiratory Rate 18 09/18/21 17:22 Respiratory Effort Non-Labored 09/18/21 17:30 Respiratory Pattern Normal 09/18/21 17:30 Blood Pressure 136/101 H 09/18/21 17:22 Blood Pressure Position Sitting 09/18/21 17:22 Pulse Oximetry 99 09/18/21 17:22 Oxygen Delivery Method Room Air 09/18/21 17:22 Oxygen Flow Rate 0 09/18/21 17:22
[2021-09-18] MEDS: diphenhydrAMINE 50 MG/ML VIAL IVP (17:40)
[2021-09-18] MEDS: methylPREDNISolone SUCC 125 MG VIAL IVP (17:41)
[2021-09-18] MEDS: FAMOTIDINE 20 MG in Normal Saline 100 ML 400 MG IVPB (17:48)
[2021-09-18] MEDS: Normal Saline 1,000 ML 1000 ML IV (18:48)
== END 2021-09-18 19:22 ==
LOC: ER 17:25
PROVIDERS: Emergency Provider Physician Assistant; PCP Nurse Practitioner Family
DX: L50.0 Allergic urticaria (principal); T36.8X5A Adverse effect of other systemic antibiotics, initial encounter; N39.0 Urinary tract infection, site not specified
CPT/HCPCS: 96361; 96374; 96375; 99284; 99283; J1200; J2930

== ENCOUNTER 2021-10-04 10:23 | Outpatient (REF) | payer BC, SELFPAY ==
--- NOTE | 2021-10-04 08:45 | PAPFT_PTH ---
PATIENT: Merissa Ward LOC: [facility] U#:[id number] AGE/SX: 61/F ROOM: RE10/04/[address]: CORONA Curry : 1960 BED: DIS: 10/04/2021 SPEC #: [id number] RECD: 10/04/21 12:48 STATUS: LINDA REQ #: [id number] CAROLYN: 10/04/21 08:[address]: Kerry Giron DEPT: [facility] Cytology RECD BY: Melly Allen ENTERED: 10/04/21 12:48 SP TYPE: PAPFT OTHR DR: Halie Graham Tissues: 1 - CX/ENDOCX FOR PAP SMEARS Procedures: PAP THIN PREP/[facility] Screening HPV DNA PROBE Comments: [id number]
== END 2021-10-04 10:24 | disposition home or self-care (01) ==
LOC: LBN 10:23
PROVIDERS: PCP Nurse Practitioner Family; Visit Provider Nurse Practitioner Family
DX: R30.0 Dysuria (principal); Z12.4 Encounter for screening for malignant neoplasm of cervix; Z11.51 Encounter for screening for human papillomavirus (HPV)
CPT/HCPCS: 88142; 87086; 87624

== ENCOUNTER → 2022-01-10 10:26 | Outpatient (CLI) | payer BC, SELFPAY ==
--- NOTE | 2022-01-10 14:45 | DI.RAD_ITS ---
Exam(s) XR WRIST RT COMPLETE EXAM: XR WRIST RT COMPLETE CLINICAL HISTORY: LT WRIST PAIN, M25.532. TECHNIQUE: 2D digital imaging was performed. COMPARISON: No exams were available for comparison FINDINGS: Four views No evidence of fracture nor dislocation. No significant ulnar variance. No osseous lesions nor eros ions. IMPRESSION: No fracture DATA REPOSITORY: RADIATION DOSE DELIVERED:
== END ==
PROVIDERS: PCP Nurse Practitioner Family; Visit Provider Family Medicine
DX: M25.532 Pain in left wrist (principal)
CPT/HCPCS: 73110

== ENCOUNTER 2022-04-12 13:22 | Outpatient (REF) | payer BC, SELFPAY ==
[2022-04-12 20:26] LABS: Calculated LDL 149 mg/dL (<100); Cholesterol 237 mg/dL (<200); HDL Cholesterol 78 mg/dL (40-60); Magnesium 1.9 mg/dL (1.8-2.4); Triglyceride 53 mg/dL (<150); Vitamin B12 513 pg/mL (193-986)
[2022-04-15 05:40] LABS: Vitamin D 25 Total 30.6 ng/mL (30-100)
[2022-04-15 11:30] LABS: Lyme Ab w Rflx to Lyme Confirm Negative (Negative)
[2022-04-16 20:07] LABS: Anaplasma phagocytophilum Negative (Negative); B. miyamotoi PCR Negative (Negative); Babesia divergens/MO-1 Negative (Negative); Babesia duncani Negative (Negative); Babesia microti Negative (Negative); Ehrlichia chaffeensis Negative (Negative); Ehrlichia ewingii/canis Negative (Negative); Ehrlichia muris eauclairensis Negative (Negative)
== END 2022-04-12 13:23 | disposition home or self-care (01) ==
LOC: NCHCN 13:22
PROVIDERS: PCP Nurse Practitioner Family; Visit Provider Nurse Practitioner Family
DX: E78.5 Hyperlipidemia, unspecified (principal); K21.9 Gastro-esophageal reflux disease without esophagitis; M85.88 Other specified disorders of bone density and structure, other site; R39.9 Unspecified symptoms and signs involving the genitourinary system; M25.59 Pain in other specified joint
CPT/HCPCS: 80061; 82306; 87798; 82607; 83735; 86618

== ENCOUNTER 2022-04-25 11:53 | Outpatient (CLI) | payer BC, SELFPAY ==
--- NOTE | 2022-04-25 10:30 | DI.RAD_ITS ---
Exam(s) XR WRIST LT COMP NAVICULAR EXAM: XR WRIST LT COMP NAVICULAR CLINICAL HISTORY: eval L wrist - ? scapholunate. TECHNIQUE: 2D digital imaging was performed of the left wrist. Four images were obtained. Scaphoid , PA, oblique and lateral views were obtained. COMPARISON: No exams were available for comparison FINDINGS: BONES: No acute fracture is present. No bony destructive lesion is seen. JOINTS: The carpal bones are normally aligned. There are mild degenerative changes seen at the 1st CM C joint. SOFT TISSUE: Normal. IMPRESSION: No acute abnormality. Unremarkable scaphoid. DATA REPOSITORY: RADIATION DOSE DELIVERED:
== END 2022-04-25 11:54 | disposition home or self-care (01) ==
LOC: DIORS 11:53
PROVIDERS: PCP Nurse Practitioner Family; Referring Provider Nurse Practitioner Family; Visit Provider Student in an Organized Health Care Education/Training Program
DX: S69.92XA Unspecified injury of left wrist, hand and finger(s), initial encounter (principal); X58.XXXA Exposure to other specified factors, initial encounter
CPT/HCPCS: 73110

== ENCOUNTER → 2022-05-17 00:41 | Outpatient (CLI) | payer BC, SELFPAY ==
--- NOTE | 2022-05-17 07:15 | DI.MRI_ITS ---
Exam(s) MR UPPER JOINT LT WO EXAM: MR UPPER JOINT LT WO CLINICAL HISTORY: pain, injury,lt scapholunate ligament tear. TECHNIQUE: Multiplanar multisequence MRI was performed. COMPARISON: Wrist x-rays 01/10/2022 and 04/25/2022 reviewed FINDINGS: BONES: There is no fracture nor bone contusion. No evidence of avascular necrosis. No evidence of ca rpal dislocation. Tiny benign cysts noted in the proximal half of the capitate as well as in the tri quetrum. There are degenerative subarticular cysts in the distal inferior aspect scaphoid mild surro unding intraosseous bone edema. No signal abnormality in the adjacent trapezium. Mild degenerative changes noted in the 1st carpometacarpal joint. No degenerative subarticular cyst at this level. There also some degenerative changes at the articulation between the triquetrum bone and the pisiform on the medial aspect wrist. JOINTS: There is a moderate amount of abnormal fluid within the distal radio-ulnar joint, not associa nilesh with fracture or bone contusion or obvious tear of the triangular fibrocartilage. There is no lo ose body within this joint effusion and there are no erosions in the distal ulna and radius. There is a septated para-articular ganglion cyst just volar to the distal radius measuring 11 millime ters deep by 11 millimeters wide by 16 millimeters longitudinal length. This is lateral to the carpa l tunnel. SCAPHOLUNATE LIGAMENT: Scapholunate distance is upper normal (3 millimeters). There appears to be pa rtial tearing of the ligament. LUNOTRIQUETRAL LIGAMENT: Appears intact. TENDONS: Flexors: Unremarkable. No tears nor tenosynovitis. Extensors: Unremarkable. No tears or tenosynovitis. Carpal tunnel:Unremarkable. Median nerve at this level appears unremarkable. MUSCLES: Unremarkable. MEDIAN NERVE: Unremarkable on this noncontrast examination. TRIANGULAR FIBROCARTILAGE: Unremarkable. OTHER: IMPRESSION: 1. No evidence of fracture, carpal dislocation, bone contusion, nor avascular necrosis. 2. Partial tear of the scapholunate ligament. Scapholunate distance is upper normal-3 millimeters. 3. Moderate size effusion in the distal radioulnar joint, not associated with adjacent osseous contus ions, erosions, nor ulnar variance. 4. Septated para-articular ganglion cyst volar to the distal radius measuring 11 x 11 x 16 millimeter s and most probably communicating with the radiocarpal compartment. 5. Some degenerative changes at the level of the 1st carpometacarpal joint, distal scaphoid at its ar ticulation with the trapezium, and at the articulation between the volar aspect of the triquetrum and the subjacent pisiform. DATA REPOSITORY:
--- NOTE | 2022-05-17 13:57 | DI.VRAD_ITS ---
PROCEDURE INFORMATION: Exam: MR Left Upper Extremity Joint Without Contrast; Wrist Exam date and time: 05/17/2022 10:02 AM Age: 62 years old Clinical indication: Pain; Wrist; Left; Patient HX: Scapholunate ligament tear TECHNIQUE: Imaging protocol: Magnetic resonance imaging of the Left upper extremity without contrast. Exam focused on the wrist. COMPARISON: CR XR WRIST LT COMP NAVICULAR 04/25/2022 10:47 AM FINDINGS: Bones and cartilage: No fracture is identified. There is very mild osteophyte formation between multiple carpal bones with mild osteophyte formation about the 1st carpometacarpal joint. Mild cystic change distally in the scaphoid is likely degenerative, and there are also mild degenerative cystic changes between the triquetrum and pisiform. Joint spaces: The joint spaces are normally aligned. Moderate fluid is present in the distal radioulnar joint. Scapholunate ligament: There is partial tear involving the volar and membranous portions of the scapholunate ligament. The dorsal component is intact, and the scapholunate interval is borderline at 3 mm. Lunotriquetral ligament: Unremarkable. No tear. Triangular fibrocartilage complex: Unremarkable. No tear. Flexor compartment tendons: Unremarkable. No tear. Extensor compartment tendons: Unremarkable. No tear. Muscles: Unremarkable. No acute abnormality. Soft tissues: A lobulated fluid intensity signal focus in the deep soft tissues over the volar aspect at the level of the distal radius measures 2.2 x 1.0 x 1.2 cm and probably communicates with the radiocarpal compartment as a ganglion cyst. IMPRESSION: 1. Degenerative changes as described. 2. Partial tear involving the volar and membranous portions of the scapholunate ligament with the dorsal component intact and with the scapholunate interval borderline at 3 mm. 3. Moderate effusion of the distal radioulnar joint. 4. Lobulated fluid intensity signal focus in the deep soft tissues over the volar aspect at the level of the distal radius, probably communicating with the radiocarpal compartment as a ganglion cyst. Dictated and Authenticated by: Joseph Booker MD. Ordering:KELSEY Mccann MD
== END ==
PROVIDERS: PCP Nurse Practitioner Family; Visit Provider Student in an Organized Health Care Education/Training Program
DX: S63.8X2A Sprain of other part of left wrist and hand, initial encounter (principal); M67.432 Ganglion, left wrist; X58.XXXA Exposure to other specified factors, initial encounter
CPT/HCPCS: 73221

== ENCOUNTER 2022-06-19 01:07 | Outpatient (CLI) | payer BC, SELFPAY ==
--- NOTE | 2022-06-19 | DI.MAMMO_ITS ---
Exam(s) MAMMO SCREENING EXAM: MAMMO SCREENING CLINICAL HISTORY: SCREENING MAMMO FOR BREAST CANCER Z12.39 TECHNIQUE: Bilateral full field digital CC and MLO mammographic images were obtained with 3D tomosyn thesis and utilizing computer aided detection (CAD). COMPARISON: Available for comparison. FINDINGS: Masses/Architectural Distortion: There is a question of an area of architectural distortion in the up per right breast on the right MLO tomographic images. Microcalcifications: No suspicious pleomorphic-type are seen. Skin Thickening/Nipple Retraction: None. IMPRESSION: 1. Question of an area of architectural distortion in the upper posterior right breast on the MLO vie w. 2. Spot compression views are requested for further evaluation. Ultrasound may be indicated at that time. BI-RADS Category 0 - Assessment Incomplete: Need additional imaging evaluation Breast Density - Category C - Heterogeneously dense Breast density category C or D implies that the patient has dense breast tissue. Dense breast tissue is very common and is not abnormal but dense breast tissue can make it harder to find cancer on a ma mmogram. Also, dense breast tissue may increase their breast cancer risk. This information about the result of the mammogram report was provided to the patient to raise their awareness. Use this report when you speak with the patient about their risks for breast cancer, which includes their family hist ory. At that time, you may recommend for more screening tests (Ultrasound or MRI) as they might be us eful based on their risk. A negative radiographic report should not delay biopsy if a dominant or clinically suspicious mass is present. Up to ten percent of cancers are not identified on mammography. A negative report may reinforce clinical impression. Adenosis and dense breasts may obscure an underlying neoplasm. False positive reports average 6 to 10%. Patient will receive a letter notifying them of these results.
== END 2022-06-19 01:27 ==
LOC: DI 01:07
PROVIDERS: PCP Nurse Practitioner Family; Visit Provider Nurse Practitioner Family
DX: Z12.31 Encounter for screening mammogram for malignant neoplasm of breast (principal); R92.8 Other abnormal and inconclusive findings on diagnostic imaging of breast
CPT/HCPCS: 77063; 77067

== ENCOUNTER → 2022-07-01 01:36 | Outpatient (CLI) | payer BC, SELFPAY ==
--- NOTE | 2022-07-01 | DI.MAMMO_ITS ---
Exam(s) MAMMO SCREEN CALL BACK UNI EXAM: MAMMO SCREEN CALL BACK UNI CLINICAL HISTORY: F/U MAMMO, ? AREA ARCHITECTURAL DISTORTION RT BREAST TECHNIQUE: Spot compression views with tomographic imaging were performed. COMPARISON: 2012 through 19 June 2022 FINDINGS: No persistent architectural distortion is seen in the upper outer quadrant. No mass is visible. The findings are consistent with overlying fibroglandular tissue. There has been no significant change from prior exams. IMPRESSION: BI-RADS Category 1, Negative Yearly screening mammography is recommended. Breast Density - Category C - Heterogeneously dense
== END ==
PROVIDERS: PCP Nurse Practitioner Family; Visit Provider Nurse Practitioner Family
DX: Z12.31 Encounter for screening mammogram for malignant neoplasm of breast (principal); R92.8 Other abnormal and inconclusive findings on diagnostic imaging of breast; N64.59 Other signs and symptoms in breast
CPT/HCPCS: 77063; 77067

== ENCOUNTER 2022-08-01 16:02 | Outpatient (REF) | payer BC, SELFPAY | END 2022-08-01 16:03 | disposition home or self-care (01) | LOC: LBN 16:02 | PROVIDERS: Visit Provider Advanced Practice Midwife | DX: R30.0 Dysuria (principal) | CPT/HCPCS: 87077; 87086; 87186 ==

== ENCOUNTER 2022-08-26 17:16 | Outpatient (REF) | payer BC, SELFPAY | END 2022-08-26 17:17 | disposition home or self-care (01) | LOC: LBN 17:16 | PROVIDERS: Visit Provider Advanced Practice Midwife | DX: B95.2 Enterococcus as the cause of diseases classified elsewhere (principal); N39.0 Urinary tract infection, site not specified | CPT/HCPCS: 87077; 87086; 87186 ==

== ENCOUNTER 2022-11-01 09:53 | Day surgery (SDC) | payer BC, SELFPAY ==
[2022-11-01 10:15] VITALS: BP 130/96; PULSE 77; RESP 16; TEMP 36.1; O2SAT 98
[2022-11-01] MEDS: Lactated Ringers 1,000 ML 80 ML IV (10:58)
[2022-11-01] MEDS: Lidocaine/Prilocaine Cream 5 GM TUBE TP ×2 (12:15→12:48)
--- NOTE | 2022-11-01 12:31 | W.ANESPRE ---
General Info Date of Service Date Performed: 11/01/22 Height: 5 ft 7 in Weight: 63.9 kg Body Mass Index (BMI): 22.0 Surgical Procedure: Operation Date: 11/01/22 10:55 Proposed Procedure Side Surgeon p Exam Under Anesthesia Batsheva Hinkle DO s Hemorrhoidectomy Batsheva Hinkle DO Meds Allergies and Home Medications Allergies Allergy/AdvReac Type Severity Reaction Status Date / Time sulfamethoxazole Allergy Intermediate Hives Verified 11/01/22 10:31 [From Sulfamethoxazole-Trimethoprim] trimethoprim Allergy Intermediate Hives Verified 11/01/22 10:31 [From Sulfamethoxazole-Trimethoprim] venom-honey bee Allergy Intermediate Hives Verified 11/01/22 10:31 trazodone Allergy Mild Verified 11/01/22 10:31 codeine Allergy Verified 11/01/22 10:31 nitrofurantoin AdvReac Intermediate Nausea Verified 11/01/22 10:31 [From Macrobid] oxybutynin AdvReac Verified 11/01/22 10:31 narcotics Allergy Mild Nausea Uncoded 11/01/22 10:31 Home Medication Medication Instructions Recorded calcium carbonate 500 mg calcium 500 mg PO DAILY 04/26/13 (1,250 mg) tablet (Calcium 500) cholecalciferol (vitamin D3) 10 400 unit PO DAILY 04/26/13 mcg (400 unit) capsule (Vitamin D3) multivitamin-ferrous 1 tab-cap PO DAILY 04/26/13 fumarate-folic acid 18 mg-400 mcg tablet (Daily Multiple) ibuprofen 200 mg tablet 1 tab PO PRN PRN 12/30/14 estradiol 10 mcg vaginal tablet 10 mcg vaginal .twice weekly 3 07/03/20 (Vagifem) months #30 tabs zaleplon 10 mg capsule 20 mg PO QHS PRN 10/04/20 dicyclomine 20 mg tablet 10 mg PO TID PRN 02/26/22 famotidine 20 mg tablet (Pepcid) 40 mg PO DAILY 02/26/22 Current Visit Medications: Current Medications Generic Name Dose Route Start Last Admin Trade Name Freq PRN Reason Stop Dose Admin Ringer's Solution 1,000 mls @ 80 mls/hr 11/01/22 06:00 11/01/22 10:58 IV 11/30/22 23:59 80 mls/hr INFUSION FER Administration IV Miscellaneous Supplies 1 each 11/01/22 06:00 Iv Access IV 11/30/22 23:59 DIRECTED FER Lidocaine/Prilocaine 5 gm 11/01/22 13:00 11/01/22 12:15 Lidocaine/Prilocaine Cream 5 Gm Tube TP 1 applic DIRECTED FER Administration Sodium Chloride 0 ml 11/01/22 06:00 Normal Saline Flush 10 Ml Syr IV 11/30/22 23:59 PRN PRN Sodium Chloride 0 ml 11/01/22 06:00 Normal Saline 10 Ml Vial IJ 11/30/22 23:59 DIRECTED PRN Sterile Water 0 ml 11/01/22 06:00 Water,Injection,Sterile 10 Ml Vial IJ 11/30/22 23:59 DIRECTED PRN PFSH Active Problems Active Problems: Problem Status Onset Code External hemorrhoids without complication K64.4 UTI (urinary tract infection) due to Enterococcus N39.0, B95.2 Dysuria R30.0 Digital mucinous cyst of finger of right hand M67.441 Left scapholunate ligament tear S63.8X2A Left wrist injury S69.92XA OAB (overactive bladder) N32.81 Breast pain, left N64.4 Rhinitis J31.0 Lower urinary tract symptoms (LUTS) R39.9 Atopic dermatitis L20.9 Actinic keratosis L57.0 Osteopenia M85.80 Ear pain H92.09 Generalized headaches R51.9 Back pain M54.9 Abdominal cramping R10.9 First degree uterine prolapse 10/07/14 N81.2 Atrophic vaginitis 08/09/14 N95.2 Barretts esophagus 08/09/14 K22.70 Chronic low back pain 08/09/14 M54.5, G89.29 Family history of osteoporosis 08/09/14 Z82.62 H/O surgical procedure Z98.89 Medical History Medical History Barretts esophagus Bladder infection Elevated blood sugar Hyperlipidemia Insomnia Pancreatitis Pulmonary hyperinflation Sore throat Surgical History Surgical History Colonoscopy - MAC EGD - MAC Tonsillectomy and adenoidectomy Tobacco Smoking/Tobacco Use Status: Never Alcohol Alcohol Intake: current Alcohol intake frequency: 0-2 drinks per day Substance Use Substance use: Never Substance use type: does not use Vital Signs and Lab Results Vital Signs Most Recent Vital Signs in EMR: Most Recent Vital Signs Temp Pulse Resp BP Pulse Ox 36.1 C L 77 16 130/96 H 98 11/01/22 10:15 11/01/22 10:15 11/01/22 10:15 11/01/22 10:15 11/01/22 10:15 Lab Results Blood Type / Crossmatch: No Data to Display Complete Blood Count: No Data to Display Complete Metabolic Panel: No Data to Display Liver Function Panel: No Data to Display Coagulation Panel: No Data to Display Cardiac Panel: No Data to Display Arterial Blood Gas: No Data to Display Venous Blood Gas: No Data to Display Pancreas Panel: No Data to Display Thyroid Panel: No Data to Display Infectious Disease: No Data to Display Blood Cultures: No Data to Display Toxicology Panel: No Data to Display Anesthesia Assessment and Plan Anesthesia History Personal History: No History of Anesthesia Complications Family History: No Family History of Anesthesia Complications Exercise Tolerance Exercise Tolerance: Metabolic Equivalents>4 Pertinent Negatives Pertinent Negatives: No Symptoms of GERD Cardiac & Pulmonary Exam Cardiac Exam: Normal S1/S2 Heart Sounds Pulmonary Exam: Clear Bilateral Breath Sounds Implantable Cardiac Device Does patient have a Pacemaker or an ICD?: No Airway Exam Known Difficult Airway: No Mallampati Class: 2 Mouth Opening: Normal (> 3cm) Thyromental Distance: Greater than 3 cm Neck Range of Motion: Full ROM Neck Circumference: Normal Teeth Condition: Normal Dentition ASA Classification ASA Score: ASA 2 Emergency Case?: No NPO Status NPO Status: NPO Clears >2 hours, Solids >8 hours Anesthesia Plan Resuscitation Status: Full Code Anesthesia Technique: MAC Anesthesia Airway Planned: Natural Airway Pain Management: Surgeon and patient request nerve block Monitors Used: Standard Monitors Preoperative Comments:: Power down. Decision to do with surgeon conscious sedation. Will not have anesthesia. Surgeon discussing with pt.
[2022-11-01 12:35] VITALS: BMI 22.0
[2022-11-01 13:03] VITALS: BP 119/93; PULSE 70; RESP 16; TEMP 36.4; O2SAT 98
--- NOTE | 2022-11-01 13:13 | W.PM.DSUDISC ---
Date of service: 11/01/22 Time of Service: 13:53 Discharge Plan Disposition Patient Disposition: Home Condition: Good Discharge Details Reason For Visit: thrombosed hemorrhoid Attending Provider: Batsheva Hinkle Primary Care Provider: Halie Graham Home Meds and New Rx's Prescriptions: No Action estradiol [Vagifem] 10 mcg tablet 10 mcg vaginal .twice weekly 90 Days Qty: 30 3RF calcium carbonate [Calcium 500] 500 MG tablet 500 mg PO DAILY cholecalciferol (vitamin D3) [Vitamin D3] 400 UNIT capsule 400 unit PO DAILY Daily Multiple 1 EACH tablet 1 tab-cap PO DAILY zaleplon 10 mg capsule 20 mg PO QHS PRN Rx Instructions: must avoid high-fat meal/food immediately before taking dose famotidine [Pepcid] 20 mg tablet 40 mg PO DAILY dicyclomine 20 mg tablet 10 mg PO TID PRN ibuprofen 200 MG tablet 1 tab PO PRN PRN Discharge Instructions Activity:: see above Shower/Bathe:: 24 hours Diet:: see above Discharge Orders Discharge Orders: Discharge Order (Routine); Ordered 11/01/22 Ordered By: Batsheva Hinkle DS: Diagnosis Discharge Diagnosis (1) Thrombosed external hemorrhoid: Status: Acute
[2022-11-01] MEDS: Bupivacaine 0.25% Pres-Free W/EPI 30 ML VIAL (13:30)
--- NOTE | 2022-11-01 13:34 | HEM_PTH ---
PATIENT: Merissa Ward LOC: [facility] U#:[id number] AGE/SX: 62/F ROOM: RE11/01/[address]: Batsheva Hinkle : 1960 BED: DIS: 11/01/2022 SPEC #: [id number] RECD: 11/01/22 17:22 STATUS: LINDA REQ #: [id number] CAROLYN: 11/01/22 13:[address]: Batsheva Hinkle DEPT: Surgical Specimen RECD BY: Melly Allen ENTERED: 11/01/22 17:23 SP TYPE: Hem OTHR DR: Halie Graham Tissues: 1 - HEMORRHOIDS Procedures: GROSS AND MICRO LEVEL 3 Comments: [id number]
[2022-11-01 13:38] VITALS: BP 103/76; PULSE 75; RESP 16; TEMP 37.2; O2SAT 95
--- NOTE | 2022-11-01 13:53 | W.PM.DSUDISC ---
Date of service: 11/01/22 Time of Service: 14:02 Discharge Plan Disposition Patient Disposition: Home Condition: Good Discharge Details Reason For Visit: thrombosed hemorrhoid Attending Provider: Batsheva Hinkle Primary Care Provider: Halie Graham Home Meds and New Rx's Prescriptions: New dibucaine 1 % ointment 1 applic KS QID PRNQty: 56 2RF tramadol 50 mg tablet 50 mg PO Q6H PRNQty: 10 0RF No Action estradiol [Vagifem] 10 mcg tablet 10 mcg vaginal .twice weekly 90 Days Qty: 30 3RF calcium carbonate [Calcium 500] 500 MG tablet 500 mg PO DAILY cholecalciferol (vitamin D3) [Vitamin D3] 400 UNIT capsule 400 unit PO DAILY Daily Multiple 1 EACH tablet 1 tab-cap PO DAILY zaleplon 10 mg capsule 20 mg PO QHS PRN Rx Instructions: must avoid high-fat meal/food immediately before taking dose famotidine [Pepcid] 20 mg tablet 40 mg PO DAILY dicyclomine 20 mg tablet 10 mg PO TID PRN ibuprofen 200 MG tablet 1 tab PO PRN PRN Discharge Instructions Additional Instructions: Home Care Instructions after Rectal Surgery Pain control:? Ibuprofen 600mg 6hrs (take w/ food. Do not take on an empty stomach) and Tylenol 1000mg by mouth (ibuprofen 400-600mg) every 8 hours.? Do not take if you have ulcers or sensitivity to aspirin.? Do not take Tylenol if you have hepatitis or liver failure. Alternate the Tylenol and ibuprofen.? Take pain meds continuously for the first 72hrs.? After 3-5 days you can take the tylenol/ibuprofen as needed for pain and not scheduled. You can also use Dibucaine ointment for pain control- apply directly to surgical. How to prevent constipation: The first bowel movement after surgery will be painful. Do not let yourself get constipated. Stay on a stool softener for the first two weeks after surgery. ?It is recommended that you use a fiber supplement (Metamucil, Citrucel) daily (1 tablespoon in 8 oz of water). If you do not have a bowel movement daily, use Milk of Magnesia or Miralax. You may have bleeding or drainage after rectal surgery; especially when you move your bowels. Use a sanitary napkin to collect the discharge. If you are passing large clots or having to change the pad more than every 4 hours, call the clinic or go to the ER. You may experience spasms in the rectal muscles. This is normal after surgery and last for about two weeks. They can become more intense with bowel movements. The best remedy is to soak in a bathtub of plain warm water- no Epsom salts, essential oil or soap.? It takes about 10 minutes further the spasm to stop.? You may want to do this after BM as well. It is ok to shower. Avoid soap on the surgical area. Use a pillow to sit on. Follow a mild bland diet. Avoid alcohol, spicy food, citrus, and tomatoes. Avoid strenuous activity (running, jogging, and power walking, swimming, weight lifting) for two weeks. No lifting over 20 pounds for 2 weeks. F/u in surgery clinic 11/07/ 2:30pm -You were also given a few tramadol (mild narcotic) for pain control This medication can make you sleepy as well as constipated. -There are stitches in the rectum, these will fall out on there own. Activity:: see above Shower/Bathe:: 24 hours Diet:: see above Discharge Orders Discharge Orders: Discharge Order (Routine); Ordered 11/01/22 Ordered By: Batsheva Hinkle DS: Diagnosis Discharge Diagnosis (1) Thrombosed external hemorrhoid: Status: Acute
--- NOTE | 2022-11-01 13:55 | W.ANESPOSTOP ---
Postoperative Evaluation Date, Time and Location Date Performed: 11/01/22 Time Performed: 13:56 Patient Location: Day Surgery Unit Vital Signs Most Recent Imported Vital Signs: Most Recent Vital Signs Temp Pulse Resp BP Pulse Ox 37.2 C 75 16 103/76 95 11/01/22 13:38 11/01/22 13:38 11/01/22 13:38 11/01/22 13:38 11/01/22 13:38 Pain Score Most Recent Pain Score: Most Recent Pain Score Pain Level 0 11/01/22 13:38 Assessment Mental Status: Awake (Alert & Oriented to Patient Baseline) Airway and Respiratory Function: Patent airway with normal (patient baseline) respiratory exam Cardiovascular Function: Hemodynamically Stable Hydration Status: Adequately Hydrated Nausea & Vomiting: No Nausea or Vomiting Pain: Pt. Denies Any Pain Peripheral Nerve Block: Patient did not receive a nerve block
[2022-11-01 14:05] VITALS: BP 114/87; PULSE 68; RESP 16; TEMP 37; O2SAT 98
--- NOTE | 2022-11-01 14:07 | ROE_ITS ---
Date of service: 11/01/22 Time of Service: 14:08 Operative Note Operative Note DATE OF PROCEDURE: 11/01/22 PRE-OP DIAGNOSIS: Thrombosed external hemorrhoid POST-OP DIAGNOSIS: same PROCEDURE: Incision and drainage of thrombosed external hemorrhoid SURGEON: Batsheva Hinkle ANESTHESIA TYPE: Local By Surgeon and MAC Refer to Anesthesia Record ESTIMATED BLOOD LOSS: 3 PATHOLOGY: other COMPLICATIONS: None Patient was transported to: same day Patient's condition: stable Procedure Description: Patient has a thrombosed hemorrhoid it is here today for excision. She had Emla placed in same-day surgery. Informed consent is obtained explaining risks and benefits of the procedure including but not limited to: Bleeding, pneumonia, infections, blood clots, complications of anesthesia, recurrence, complications of administered local anesthetics, damage to sphincters including stenosis or loss of control. Patient is brought to the procedure room. Anesthesia is administered per the department of anesthesia. Timeout is performed. Patient is prepped and draped in the usual sterile fashion using a Betadine scrub solution. 15 cc of 1% lidocaine with epi was used for local anesthesia. A 1 cm incision is made over the thrombosed hemorrhoid. The area of necrotic tissue is excised. It is irrigated. all the clot is expressed. There is some redundant tissue that is excised. The incision is closed with running 3-0 Vicryl. Dibucaine impregnated Gelfoam and sterile dressings are applied. Patient tolerated procedure well without complication. And transferred to same- day in stable
== END 2022-11-01 14:35 | disposition home or self-care (01) ==
PROVIDERS: PCP Nurse Practitioner Family; Visit Provider Surgery
PROC: (CPT 46083; principal; 2022-11-01 10:45)
DX: K64.5 Perianal venous thrombosis (principal)
CPT/HCPCS: 46083; 88304; J2704

== ENCOUNTER 2022-11-14 10:34 | Outpatient (REF) | payer BC, SELFPAY | END 2022-11-14 10:35 | disposition home or self-care (01) | LOC: NCHCN 10:34 | PROVIDERS: PCP Nurse Practitioner Family; Visit Provider Nurse Practitioner Family | DX: N39.0 Urinary tract infection, site not specified (principal); R39.89 Other symptoms and signs involving the genitourinary system | CPT/HCPCS: 87086 ==

== ENCOUNTER 2023-02-03 15:45 | Outpatient (CLI) | payer BC, SELFPAY ==
--- NOTE | 2023-02-03 15:11 | DI.RAD_ITS ---
Exam(s) XR LUMBAR SPINE COMPLETE EXAM: XR LUMBAR SPINE COMPLETE CLINICAL HISTORY: LOW BACK PAIN M54.59. TECHNIQUE: 2D digital imaging was performed. COMPARISON: No exams were available for comparison FINDINGS: Five views No evidence of fracture, listhesis, nor pars defects. There is advanced disc space narrowing at L3-4 level and mild disc space narrowing at L4-5 level. Other disc spaces exhibit normal height. No pro minent facet arthropathy. SI joints unremarkable. No osseous lesions. IMPRESSION: Degenerative disc disease. No fractures. DATA REPOSITORY: RADIATION DOSE DELIVERED:
== END 2023-02-03 16:05 ==
LOC: DI 15:45
PROVIDERS: PCP Nurse Practitioner Family; Visit Provider Nurse Practitioner Family
DX: M54.59 Other low back pain (principal); M51.36 Other intervertebral disc degeneration, lumbar region
CPT/HCPCS: 72110

== ENCOUNTER 2023-02-27 19:29 | Outpatient (REF) | payer MEDICARE, SELFPAY | END 2023-02-27 19:30 | disposition home or self-care (01) | LOC: NCHCN 19:29 | PROVIDERS: PCP Nurse Practitioner Family; Visit Provider Family Medicine | DX: R39.89 Other symptoms and signs involving the genitourinary system (principal); R82.998 Other abnormal findings in urine | CPT/HCPCS: 87086 ==

== ENCOUNTER 2023-04-22 17:50 | Outpatient (REF) | payer MEDICARE, SELFPAY | END 2023-04-22 17:51 | disposition home or self-care (01) | LOC: NCHCN 17:50 | PROVIDERS: PCP Nurse Practitioner Family; Visit Provider Nurse Practitioner Family | DX: R39.89 Other symptoms and signs involving the genitourinary system (principal); N32.81 Overactive bladder | CPT/HCPCS: 87086 ==

== ENCOUNTER → 2023-04-23 08:28 | Outpatient (BNVA) | payer MEDICARE, SELFPAY | PROVIDERS: PCP Nurse Practitioner Family; Visit Provider Nurse Practitioner Gerontology | DX: N32.81 Overactive bladder (principal); Z87.440 Personal history of urinary (tract) infections; N89.8 Other specified noninflammatory disorders of vagina | CPT/HCPCS: 51798; 81003; 99214 ==

== ENCOUNTER 2023-05-23 16:50 | Outpatient (REF) | payer MEDICARE, SELFPAY | END 2023-05-23 16:51 | disposition home or self-care (01) | LOC: LBN 16:50 | PROVIDERS: PCP Nurse Practitioner Family; Visit Provider Physician Assistant Medical | DX: J09.X2 Influenza due to identified novel influenza A virus with other respiratory manifestations (principal) | CPT/HCPCS: 87070 ==

== ENCOUNTER → 2023-06-04 00:31 | Outpatient (CLI) | payer MEDICARE, SELFPAY ==
--- NOTE | 2023-06-04 | DI.MRI_ITS ---
Exam(s) MR LUMBAR SPINE WO EXAM: MR LUMBAR SPINE WO CLINICAL HISTORY: DEGENERATIVE DISC DISEASE M53.80. TECHNIQUE: Multiplanar multisequence MRI of the Lumbar spine was performed. COMPARISON: CR XR LUMBAR SPINE COMPLETE from 02/03/2023 FINDINGS: Bones: The last intervertebral disc space is designated the L5/S1 level for the numbering purpose of this examination. The vertebral body heights are well maintained. Alignment is satisfactory. There are degenerative endplate signal changes present particularly at L3-4 through L5-S1. Cord: The conus tip ends at the L1 level. It is of normal size and signal intensity. T12-L1: No disc herniations or bulges are present. No central spinal canal or neural foraminal stenos is. L1-2: No disc herniations or bulges are present. No central spinal canal or neural foraminal stenosis . L2-3: No disc herniations or bulges are present. No central spinal canal or neural foraminal stenosis . L3-4: There is a mild diffuse disc bulge. No significant central spinal canal or left neural foramin al stenosis is seen. There is mild narrowing of the right neural foramen. L4-5: There is a mild diffuse disc bulge. Mild degenerative changes of the facets are seen. No sign ificant central spinal canal stenosis is seen. There is mild narrowing of the neural foramen bilater ally. L5-S1: There is an asymmetric disc bulge to the left extending into the left neural foramen. There i s no central spinal canal or right neural foraminal stenosis. There is mild narrowing of the left ne ural foramen. Soft tissues: The visualized SI joints and sacrum are well maintained. The paraspinal soft tissues ar e unremarkable. IMPRESSION: Multilevel degenerative changes in the lumbar spine resulting in neural foraminal narrowing as descri bed above. DATA REPOSITORY:
== END ==
PROVIDERS: PCP Nurse Practitioner Family; Visit Provider Nurse Practitioner Family
DX: M51.36 Other intervertebral disc degeneration, lumbar region (principal); M99.63 Osseous and subluxation stenosis of intervertebral foramina of lumbar region
CPT/HCPCS: 72148

== ENCOUNTER → 2023-06-23 00:55 | Outpatient (CLI) | payer MEDICARE, SELFPAY ==
--- NOTE | 2023-06-23 | DI.MAMMO_ITS ---
Exam(s) MAMMO SCREENING EXAM: MAMMO SCREENING CLINICAL HISTORY: SCREENING Z12.31 TECHNIQUE: Bilateral full field digital CC and MLO mammographic images were obtained with 3D tomosyn thesis and utilizing computer aided detection (CAD). COMPARISON: Available for comparison. FINDINGS: Masses/Architectural Distortion: None seen. Microcalcifications: No suspicious pleomorphic-type are seen. Skin Thickening/Nipple Retraction: None. IMPRESSION: 1. No significant interval change with no specific features of malignancy noted. 2. Unless there is more urgent need, screening mammography is recommended, as per [employer] guidelines. BI-RADS Category 1 - Negative Breast Density - Category C - Heterogeneously dense Breast density category C or D implies that the patient has dense breast tissue. Dense breast tissue is very common and is not abnormal but dense breast tissue can make it harder to find cancer on a ma mmogram. Also, dense breast tissue may increase their breast cancer risk. This information about the result of the mammogram report was provided to the patient to raise their awareness. Use this report when you speak with the patient about their risks for breast cancer, which includes their family hist ory. At that time, you may recommend for more screening tests (Ultrasound or MRI) as they might be us eful based on their risk. A negative radiographic report should not delay biopsy if a dominant or clinically suspicious mass is present. Up to ten percent of cancers are not identified on mammography. A negative report may reinforce clinical impression. Adenosis and dense breasts may obscure an underlying neoplasm. False positive reports average 6 to 10%. Patient will receive a letter notifying them of these results.
== END ==
PROVIDERS: PCP Nurse Practitioner Family; Visit Provider Nurse Practitioner Family
DX: Z12.31 Encounter for screening mammogram for malignant neoplasm of breast (principal)
CPT/HCPCS: 77063; 77067

== ENCOUNTER → 2023-08-13 13:23 | Outpatient (BNVA) | payer MEDICARE, SELFPAY | PROVIDERS: PCP Nurse Practitioner Family; Visit Provider Nurse Practitioner Gerontology | DX: N32.81 Overactive bladder (principal); N36.8 Other specified disorders of urethra; Z87.440 Personal history of urinary (tract) infections | CPT/HCPCS: 81003; 99213 ==

== ENCOUNTER 2023-08-13 14:08 | Outpatient (REF) | payer MEDICARE, SELFPAY | END 2023-08-13 14:09 | disposition home or self-care (01) | LOC: LBN 14:08 | PROVIDERS: PCP Nurse Practitioner Family; Visit Provider Nurse Practitioner Gerontology | DX: R39.89 Other symptoms and signs involving the genitourinary system (principal); R82.998 Other abnormal findings in urine; Z87.440 Personal history of urinary (tract) infections | CPT/HCPCS: 87086 ==

== ENCOUNTER 2023-09-24 12:44 | Outpatient (REF) | payer MEDICARE, SELFPAY ==
[2023-09-25 10:50] LABS: Campylobacter PCR Negative (Negative); Salmonella PCR Negative (Negative); Shiga Toxin PCR Negative (Negative); Shigella/Enteroinvasive Ecoli Negative (Negative)
== END 2023-09-24 12:45 | disposition home or self-care (01) ==
LOC: NCHCN 12:44
PROVIDERS: PCP Nurse Practitioner Family; Visit Provider Nurse Practitioner Family
DX: R10.9 Unspecified abdominal pain (principal); R19.7 Diarrhea, unspecified
CPT/HCPCS: 87505; 87177

== ENCOUNTER 2023-10-02 10:19 | Outpatient (REF) | payer MEDICARE, SELFPAY ==
[2023-10-02 14:13] LABS: Bilirubin Negative (Negative); Blood Negative (Negative); Clarity Clear (Clear); Glucose Negative (Negative); Ketones Negative (Negative); Leukocyte Esterase Negative (Negative); Nitrite Negative (Negative); Specific Gravity <= 1.005 (1.005-1.025); Urobilinogen 0.2 mg/dL (Up to 0.2); pH 6.5 (5-8)
[2023-10-02 14:15] LABS: Abs Immature Grans 0.01 10^3/uL (0.0-0.06); Absolute Basophil Count 0.05 10^3/uL (0.0-0.2); Absolute Eosinophil Count 0.04 10^3/uL (0.0-0.7); Absolute Lymphocyte Count 2.19 10^3/uL (1.2-3.4); Absolute Monocyte Count 0.42 10^3/uL (0.1-0.8); Absolute Neutrophil Count 2.32 10^3/uL (1.2-6.7); Eosinophils % 0.8; HGB 14.4 g/dL (11.2-15.7); Immature Grans % 0.2; Lymphocytes % 43.5; MCH 33.3 pg (27.0-33.0); MCV 92 fL (80-95); MPV 10.2 fL (8.0-11.0); Monocytes % 8.3; Neutrophils % 46.2; Platelet Count 243 10^3/uL (130-400); RBC 4.33 10^6/uL (3.93-5.22); RDW 11.9 % (11.7-14.6); RDW-SD 40.6 fL; WBC 5.03 10^3/uL (4.4-10.8)
[2023-10-02 14:39] LABS: ALT 22 U/L (14-59); AST 18 U/L (15-37); Albumin 4.3 g/dL (3.4-5.0); Alkaline Phosphatase 62 U/L (46-116); Anion Gap 7.4 mmol/L (3-11); BUN 13 mg/dL (7-18); Bilirubin, Total 0.8 mg/dL (0.2-1.0); CO2 29.6 mmol/L (21.0-32.0); CREATININE 0.8 mg/dL (0.55-1.02); Calcium 9.6 mg/dL (8.5-10.1); Calculated LDL 156 mg/dL (<100); Chloride 101 mmol/L (98-107); Cholesterol 257 mg/dL (<200); Estimated GFR 81.72 (mL/min/1.73m2); Glucose 94 mg/dL (74-106); HDL Cholesterol 86 mg/dL (40-60); Potassium 4.8 mmol/L (3.5-5.1); Sodium 138 mmol/L (136-145); Total Protein 7.5 g/dL (6.4-8.2); Triglyceride 79 mg/dL (<150)
[2023-10-02 14:49] LABS: Vitamin D 25 Total 29.8 ng/mL (30-100)
[2023-10-02 14:59] LABS: Amylase 37 U/L (25-115); Lipase 33 U/L (16-77)
== END 2023-10-02 10:20 | disposition home or self-care (01) ==
LOC: NCHCN 10:19
PROVIDERS: PCP Nurse Practitioner Family; Referring Provider Nurse Practitioner Family; Visit Provider Nurse Practitioner Family
DX: E78.5 Hyperlipidemia, unspecified (principal); M85.88 Other specified disorders of bone density and structure, other site; R10.9 Unspecified abdominal pain; N30.10 Interstitial cystitis (chronic) without hematuria
CPT/HCPCS: 80053; 80061; 82306; 83690; 81003; 82150; 85025

== ENCOUNTER 2024-01-01 13:55 | Outpatient (REF) | payer MEDICARE, SELFPAY ==
[2024-01-01 14:27] LABS: Bilirubin Negative (Negative); Blood Negative (Negative); Clarity Clear (Clear); Glucose Negative (Negative); Ketones Negative (Negative); Leukocyte Esterase Negative (Negative); Nitrite Negative (Negative); Specific Gravity 1.015 (1.005-1.025); pH 8.5 (5-8)
== END 2024-01-01 13:56 | disposition home or self-care (01) ==
LOC: NCHCN 13:55
PROVIDERS: PCP Nurse Practitioner Family; Visit Provider Nurse Practitioner Family
DX: N30.10 Interstitial cystitis (chronic) without hematuria (principal)
CPT/HCPCS: 81003

== ENCOUNTER → 2024-02-11 13:24 | Outpatient (BNVA) | payer MEDICARE, SELFPAY | PROVIDERS: PCP Nurse Practitioner Family; Visit Provider Nurse Practitioner Gerontology | DX: N36.8 Other specified disorders of urethra (principal); N39.0 Urinary tract infection, site not specified | CPT/HCPCS: 81003; 99213 ==

== ENCOUNTER 2024-03-18 02:15 | Outpatient (CLI) | payer MEDICARE, SELFPAY ==
--- NOTE | 2024-03-18 | DI.DEXA_ITS ---
Exam(s) XR DEXA BONE DENSITY W/WO RAJIV EXAM: XR DEXA BONE DENSITY W/WO RAJIV CLINICAL HISTORY: BONE DENSITY FINDING, M85.88 TECHNIQUE: [employer] densitometer analysis of left hip, lumbar spine and left forearm. Lat eral survey image of the thoracic and lumbar spine. COMPARISON: 2014, 2018 and 2020 FINDINGS: Lateral view of the thoracic and lumbar spine shows no evidence of compression fractures. Bone mineral density measurements of the lumbar spine correspond to a total T-score of -1.9, in the osteopenic range. This is not significantly changed from prior exams. Bone mineral density measurements of the left hip correspond to a total T-score of -1.5. This repre sents a 5.5 percent decrease from 2020 and an 11.3 percent decrease compared to 2014. the femoral ne ck T-score is -2.3, in the osteopenic range.. Theleft forearm bone mineral density measurements correspond to a T-score of the distal 3rd of -0.8, in the normal range. This is not significantly changed from prior exams. IMPRESSION: Osteopenia of the spine and hip. Normal bone mineral density of the forearm.
== END 2024-03-18 02:35 ==
LOC: DI 02:15
PROVIDERS: PCP Nurse Practitioner Family; Visit Provider Nurse Practitioner Family
DX: M85.88 Other specified disorders of bone density and structure, other site (principal); Z13.820 Encounter for screening for osteoporosis
CPT/HCPCS: 77080

== ENCOUNTER 2024-06-28 01:53 | Outpatient (CLI) | payer MEDICARE, SELFPAY ==
--- NOTE | 2024-06-28 06:45 | DI.MAMMO_ITS ---
Exam(s) MAMMO SCREENING EXAM: MAMMO SCREENING CLINICAL HISTORY: screening,Z12.39 TECHNIQUE: Mammograms were interpreted according to the usual protocol including computer analysis w [employer] CAD system, tomosynthesis and C-view imaging. COMPARISON: 2015 through 2022 FINDINGS: The breasts are composed of heterogeneously dense fibroglandular densities, Breast Density category C . No suspicious masses or suspicious microcalcifications are seen. No skin thickening or abnormal axillary lymph nodes are seen. There has been no significant change from prior exams. IMPRESSION: BI-RADS Category 1, Negative mammogram. Yearly screening mammography is recommended. Breast Density Category C, heterogeneously Dense. The mammogram demonstrates the patient's breast tissue is dense. Dense breast tissue is very common a nd is not abnormal but dense breast tissue can make it harder to find cancer on a mammogram. Also, de nse breast tissue may increase breast cancer risk. This information about the result of the mammogram report was provided to the patient to raise their awareness. Use this report when you speak with the patient about their risks for breast cancer, which includes their family history. At that time, you may recommend additional screening tests (Ultrasound or MRI) as they might be useful based on their r isk. A negative radiographic report should not delay biopsy if a dominant or clinically suspicious mass is present. Up to ten percent of cancers are not identified on mammography. A negative report may reinforce clinical impression. Adenosis and dense breasts may obscure an underlying neoplasm. False positive reports average 6 to 10%.
== END 2024-06-28 02:13 ==
LOC: DI 01:53
PROVIDERS: PCP Nurse Practitioner Family; Visit Provider Obstetrics & Gynecology
DX: Z12.31 Encounter for screening mammogram for malignant neoplasm of breast (principal); R92.333 Mammographic heterogeneous density, bilateral breasts
CPT/HCPCS: 77063; 77067

== ENCOUNTER 2024-12-09 09:37 | Outpatient (REF) | payer MEDICARE, SELFPAY ==
--- NOTE | 2024-12-09 09:21 | PAPFT_PTH ---
PATIENT: Merissa Ward LOC: [facility] U#:[id number] AGE/SX: 64/F ROOM: RE12/09/[address]: Macy Adamson DO : 1960 BED: DIS: 12/09/2024 SPEC #: [id number] RECD: 12/09/24 12:48 STATUS: LINDA REQ #: [id number] CAROLYN: 12/09/24 09:[address]: Macy Adamson DEPT: [facility] Cytology RECD BY: Melly Allen ENTERED: 12/09/24 12:48 SP TYPE: PAPFT OTHR DR: Halie Graham Tissues: 1 - CX/ENDOCX FOR PAP SMEARS Procedures: PAP THIN PREP/[facility] Screening HPV DNA PROBE Comments: [id number] (HPV 16 & 18/45)
== END 2024-12-09 09:38 | disposition home or self-care (01) ==
LOC: LBN 09:37
PROVIDERS: PCP Nurse Practitioner Family; Visit Provider Obstetrics & Gynecology
DX: Z11.51 Encounter for screening for human papillomavirus (HPV) (principal); Z01.419 Encounter for gynecological examination (general) (routine) without abnormal findings
CPT/HCPCS: 88142; 87624

== ENCOUNTER → 2025-02-09 13:23 | Outpatient (BNVA) | payer MEDICARE, SELFPAY | PROVIDERS: PCP Nurse Practitioner Family; Visit Provider Nurse Practitioner Gerontology | DX: N36.8 Other specified disorders of urethra (principal); N39.0 Urinary tract infection, site not specified; B95.2 Enterococcus as the cause of diseases classified elsewhere | CPT/HCPCS: 99213; 81002 ==

== ENCOUNTER 2025-03-08 15:44 | Outpatient (CLI) | payer MEDICARE, SELFPAY ==
--- NOTE | 2025-03-08 | DI.US_ITS ---
Exam(s) US SOFT TISSUE EXTREMITY EXAM: US SOFT TISSUE EXTREMITY CLINICAL HISTORY: Nodule of soft tissue, M79.89, rt upper outer arm. TECHNIQUE: Ultrasound was performed using standard protocol. COMPARISON: No exams were available for comparison FINDINGS: Sonographic assessment utilizing grayscale and color Doppler imaging was performed and targeted to the area of clinical concern. A circumscribed nodule isoechoic to surrounding fat measuring 2.5 x 1.2 x 3.4 cm, consistent with a benign lipoma. This corresponds to the palpable abnormality. IMPRESSION: 3.4 centimeter lipoma in the right lateral arm. DATA REPOSITORY:
== END 2025-03-08 16:04 ==
LOC: DI 15:46
PROVIDERS: PCP Nurse Practitioner Family; Visit Provider Nurse Practitioner Family
DX: M79.89 Other specified soft tissue disorders (principal)
CPT/HCPCS: 76881

== ENCOUNTER 2025-06-30 01:39 | Outpatient (CLI) | payer MEDICARE, SELFPAY ==
[2025-06-30 07:47] LABS: Abs Immature Grans 0.00 10^3/uL (0.0-0.06); HCT 38.9 % (36.0-46.0); HGB 13.1 g/dL (11.2-15.7); Immature Grans % 0.0 %; MCH 31.3 pg (27.0-33.0); MCHC 33.7 % (32.0-36.0); MCV 93 fL (80-95); MPV 9.9 fL (8.0-11.0); Platelet Count 221 10^3/uL (130-400); RBC 4.19 10^6/uL (3.93-5.22); RDW 11.9 % (11.7-14.6); RDW-SD 40.3 fL; WBC 4.56 10^3/uL (4.4-10.8)
[2025-06-30 07:49] LABS: ESR 2 mm/hr (0-30)
[2025-06-30 08:26] LABS: D-Dimer 417 ng/mlFEU (<500)
[2025-06-30 08:31] LABS: C-Reactive Protein < 0.50 mg/dL (<=0.50)
[2025-06-30 08:34] LABS: ALT 15 U/L (10-49); AST 22 U/L (<34); Albumin 4.4 g/dL (3.2-5.0); Alkaline Phosphatase 57 U/L (46-116); Anion Gap 8.4 mmol/L (3-11); BUN 16 mg/dL (9-23); Bilirubin, Total 0.80 mg/dL (0.2-1.2); CO2 28.6 mmol/L (20.0-31.0); Calcium 9.2 mg/dL (8.3-10.6); Chloride 100 mmol/L (98-107); Cholesterol 249 mg/dL (<200); Glucose 94 mg/dL (74-106); HDL Cholesterol 84 mg/dL (>40); Potassium 4.1 mmol/L (3.5-5.1); Sodium 137 mmol/L (136-145); Total Protein 7.3 g/dL (5.7-8.2)
[2025-07-01 11:13] LABS: Lyme Ab w Rflx to Lyme Confirm Negative (Negative)
[2025-07-02 18:51] LABS: B. miyamotoi PCR Negative (Negative); Babesia divergens/MO-1 Negative (Negative); Ehrlichia muris eauclairensis Negative (Negative)
== END 2025-06-30 01:40 | disposition home or self-care (01) ==
LOC: LBO 01:39
PROVIDERS: PCP Nurse Practitioner Family; Visit Provider Nurse Practitioner Family
DX: E78.5 Hyperlipidemia, unspecified (principal); M54.50 Low back pain, unspecified; M25.551 Pain in right hip; M25.552 Pain in left hip; R07.89 Other chest pain
CPT/HCPCS: 36415; 80053; 80061; 85652; 87798; 84443; 85025; 85379; 86038; 86140; 86618

== ENCOUNTER → 2025-07-01 00:08 | Outpatient (CLI) | payer MEDICARE, SELFPAY ==
--- NOTE | 2025-07-01 06:00 | DI.MAMMO_ITS ---
Exam(s) MAMMO SCREENING EXAM: MAMMO SCREENING CLINICAL HISTORY: screening,z12.39. TECHNIQUE: Bilateral full field digital CC and MLO mammographic images were obtained with 3D tomosynthesis and utilizing computer aided detection (CAD). COMPARISON: Prior mammograms were reviewed. FINDINGS: Fibroglandular tissue pattern is again noted be heterogeneously Dense. There are no new significant left breast findings. Asymmetric density posteriorly in the right breast is unchanged. However, on the 3D cc view of the right breast there is a subtle suggestion an of a possible 9 x 7 mm noncalcified nodule, located 6 cm in from the nipple, medial of center.. Spot compression view recommended. There are no malignant-appearing microcalcification groups in either breast. There is no significant architectural distortion nor skin thickening-retraction. IMPRESSION: 1. Dense bilateral fibroglandular tissue. No radiographic evidence of malignancy in the left breast. 2. Asymmetric density-possible nodule in the right breast as described above. Spot compression CC view recommended as well as complete right breast ultrasound: BI-RADS Category 0 - Incomplete: Need additional imaging evaluation Breast Density - Category C - The breast are heterogeneously dense, which may obscure small masses. Breast density Category C or D implies that the patient has dense breast tissue. Dense breast tissue can make it harder to find cancer on a mammogram. Dense breast tissue is also associated with an increased risk of breast cancer. This information about the result of the mammogram report was provided to the patient to raise their awareness. Use this report when you speak with the patient about their risks for breast cancer, which includes their family history. At that time, you may recommend additional screening tests (Ultrasound or MRI) as these tests may add significant information. A negative radiographic report should not delay biopsy if a dominant or clinically suspicious mass is present. Up to ten percent of cancers are not identified on mammography. A negative report may reinforce clinical impression. Adenosis and dense breasts may obscure an underlying neoplasm. False positive reports average 6 to 10%. Patient will receive a letter notifying them of these results.
== END ==
LOC: DI 00:10
PROVIDERS: PCP Nurse Practitioner Family; Visit Provider Obstetrics & Gynecology
DX: Z12.31 Encounter for screening mammogram for malignant neoplasm of breast (principal)
CPT/HCPCS: 77063; 77067

== ENCOUNTER → 2025-07-01 00:28 | Outpatient (CLI) | payer MEDICARE, SELFPAY ==
--- NOTE | 2025-07-01 08:52 | DI.RAD_ITS ---
Exam(s) XR CHEST 2V PA LATERAL EXAM: XR CHEST 2V PA LATERAL CLINICAL HISTORY: CHRONIC COUGH R05.3. TECHNIQUE: 2D digital imaging was performed. COMPARISON: CR XR CHEST 2V PA LATERAL from 12/30/2019 FINDINGS: 2 views: Heart size is normal. Tortuous descending thoracic aorta again noted. The mediastinum is otherwise not widened. Lungs are clear. No infiltrates nor pleural effusions. No pulmonary edema. IMPRESSION: No acute pulmonary findings.Somewhat tortuous descending thoracic aorta is again noted. DATA REPOSITORY: RADIATION DOSE DELIVERED:
--- NOTE | 2025-07-01 08:52 | DI.RAD_ITS ---
Exam(s) XR HIP PELVIS ADULT BL EXAM: XR HIP PELVIS ADULT BL CLINICAL HISTORY: LOW BACK PAIN, M54.50,BILAT HIP PAIN,M25.552,M25.551. TECHNIQUE: 2D digital imaging was performed. COMPARISON: No exams were available for comparison FINDINGS: 3 views No evidence of pelvic nor hip fractures. No hip joint space narrowing. No prominent osteophytes. No abnormal soft tissue densities. No obvious degenerative subarticular cysts. Sacroiliac joints appear unremarkable. There is multilevel disc space narrowing incidentally noted in the included lower lumbar spine. IMPRESSION: No significant radiograph findings in the hips. Multilevel disc space narrowing in the lumbar spine DATA REPOSITORY: RADIATION DOSE DELIVERED:
== END ==
LOC: DI 00:28
PROVIDERS: PCP Nurse Practitioner Family; Visit Provider Nurse Practitioner Family
DX: R05.3 Chronic cough (principal); M25.552 Pain in left hip; M54.50 Low back pain, unspecified
CPT/HCPCS: 73521; 71046

== ENCOUNTER → 2025-07-06 00:13 | Outpatient (CLI) | payer MEDICARE, SELFPAY ==
--- NOTE | 2025-07-06 | DI.US_ITS ---
Exam(s) MG MAMMO SCREEN CALL BACK UNI US BREAST RT COMPLETE EXAM: MG MAMMO SCREEN CALL BACK UNI AND COMPLETE RIGHT BREAST ULTRASOUND CLINICAL HISTORY: F/U MAMMO, R92.8,INCONCLUSIVE MAMMO,ASYMMETRIC DENSITY RT,? NODULE. TECHNIQUE: Unilateral RIGHT BREAST spot mammographic images obtained with 3D tomosynthesisand utilizing computer aided detection (CAD). . Complete RIGHT breast Ultrasound was also performed, including all 4 quadrants, the retroareolar region, and the ipsilateral axilla. COMPARISON: Prior mammograms were reviewed. This additional imaging was performed due to findings described on the recent screening mammogram of 07/01/2025. FINDINGS: DIAGNOSTIC RIGHT BREAST MAMMOGRAM: Additional mammographic views performed todayrender this area less concerning and similar in appearance to prior mammograms. COMPLETE RIGHT BREAST ULTRASOUND: Ultrasound performed today reveals no evidence of solid or significant cystic lesions in all 4 quadrants. Scanning of the ipsilateral axilla reveals no significant adenopathy. IMPRESSION: 1. No radiographic evidence of malignancy. 2. Negative complete right breast ultrasound Appropriate follow-up is repeat right breast MAMMOGRAM 6 months. The patient was informed of these findings and recommendations by myself prior to leaving the department today. BI-RADS Category 3 - 6 month - Probably Benign Finding: Recommend follow-up mammography in 6 months Breast Density - Category C - The breast are heterogeneously dense, which may obscure small masses. Breast density Category C or D implies that the patient has dense breast tissue. Dense breast tissue can make it harder to find cancer on a mammogram. Dense breast tissue is also associated with an increased risk of breast cancer. This information about the result of the mammogram report was provided to the patient to raise their awareness. Use this report when you speak with the patient about their risks for breast cancer, which includes their family history. At that time, you may recommend additional screening tests (Ultrasound or MRI) as these tests may add significant information. A negative radiographic report should not delay biopsy if a dominant or clinically suspicious mass is present. Up to ten percent of cancers are not identified on mammography. A negative report may reinforce clinical impression. Adenosis and dense breasts may obscure an underlying neoplasm. False positive reports average 6 to 10%. Patient will receive a letter notifying them of these results.
== END ==
LOC: DI 00:13
PROVIDERS: PCP Nurse Practitioner Family; Visit Provider Nurse Practitioner Family
DX: Z12.31 Encounter for screening mammogram for malignant neoplasm of breast (principal); R92.8 Other abnormal and inconclusive findings on diagnostic imaging of breast
CPT/HCPCS: 76642; 77063; 77067

== ENCOUNTER → 2025-07-27 15:21 | Outpatient (CLI) | payer MEDICARE, SELFPAY ==
--- NOTE | 2025-07-27 15:30 | DI.US_ITS ---
APPROVED REPORT EXAM: Comprehensive 2D, Doppler, and color-flow Echocardiogram Patient Location: Out-Patient Unarmed Security Guard: Raina Glover RDCS (AE) Indications: tortuous aortic arch, Chest pain Other Information Study Quality: Adequate Conclusion Normal left ventricular wall thickness and chamber size. Ejection fraction is 65%. Wall motion is normal Normal right ventricular size and function Both atria are normal in size There are no structural valvular abnormalities Mild mitral regurgitation Estimated right ventricular systolic pressure is 24 mmHg Ascending aorta measures 3.9 cm Wall motion Left Ventricle The left ventricle is normal size. The left ventricular systolic function is normal. The left ventricular ejection fraction is within the normal range. There is normal left ventricular wall thickness. There is normal LV segmental wall motion. There is no ventricular septal defect visualized. LVEF is 65%. Right Ventricle The right ventricle is normal size. The right ventricular systolic function is normal. Atria The left atrium size is normal. The right atrium size is normal. The interatrial septum is intact with no evidence for an atrial septal defect. Aortic Valve The aortic valve is normal in structure. Aortic valve is trileaflet. There is no aortic valvular stenosis. No aortic regurgitation is present. Mitral Valve The mitral valve is normal in structure. No evidence of mitral valve stenosis. Mild mitral regurgitation. Tricuspid Valve The tricuspid valve is normal in structure. There is no tricuspid valve stenosis. Trace tricuspid regurgitation. The RVSP is 24.5 mmHg. Pulmonic Valve The pulmonary valve is normal in structure. There is no pulmonic valvular stenosis. There is no pulmonic valvular regurgitation. Great Vessels The aortic root is normal in size. The ascending aorta is moderately dilated. Aortic arch is normal in caliber. IVC is normal in size and collapses >50% with inspiration. Pericardium There is no pericardial effusion. 2D Dimensions IVSD d PLAX 0.84 cm F: 0.6-1.0 Ao Root d 3.33 cm F: 2.7 - 3.3 LVPW d PLAX 0.80 cm F: 0.6 - 1.0 Ao Asc Diam d 3.90 cm F: 2.3 - 3.1 LVID d PLAX 4.20 cm F: 3.8 - 5.2 LVDs 2.70 cm F: 2.2 - 3.5 LV EF Teichholz 64.9 % FS 35.11 % LV EDV (Teich) 76.5 mL LV ESV (Teich) 26.9 mL M-Mode TAPSE 2.89 cm (M/F) >1.7 Auto EF LV EDV A4C 96.1 mL LV EDV A2C 98.2 mL LV EDV BP 96.3 mL LV ESV A4C 33.7 mL LV ESV A2C 34.1 mL LV ESV BP 34.7 mL LVEF(%) A4C 65.0 % LVEF(%) A2C 65.2 % LVEF(%) BP 64.0 % LV SV A4C 62.4 ml LV SV A2C 64.0 ml LV SV BP 61.7 ml LV CO A4C 3.3 L/min LV CO A2C 4.2 L/min LV CO BP 3.7 L/min HR A4C 52.40 BPM HR A2C 65.46 BPM LV EDV Index (BP) LA Volume LA Length A4C 3.5 cm LA Length A2C 3.7 cm LA Area A4C s 9.22 cm2 LA Area A2C s 10.99 cm2 LA Vol A4C A-L 20.64 mL LA Vol A2C A-L 27.70 mL LA Vol Biplane A-L 24.6 mL LA Vol/BSA A4C A-L LA Vol/BSA A2C A-L LA Vol/BSA BP A-L 14.0 mL/m2 LA Vol A4C MOD 18.9 mL LA Vol A2C MOD 25.6 mL LA Vol BP MOD 22.6 mL LV Diastology MV E' medial 0.086 (>0.07 m/s) MV E Vmax 0.67 (0.4-1.3 m/s) MV E/E' MED 7.71 (<14) MV A Vmax 0.80 (0.4-1.3 m/s) MV E' lateral 0.083 (>0.1 m/s) E/A Ratio 0.8 MV E/E' LAT 8.01 (<14) MV E' Average 0.085 m/s MV E/E'(average) 7.86 Aortic Valve AoV Vmax 1.23 m/s LVOT Vmax 0.98 m/s AoV Peak Grad 6.0 mmHg LVOT Peak Grad 3.8 mmHg AoV Area (Vmax) 2.45 cm2 LVOT VTI 0.229 m AoV VTI 0.265 m LVOT Mean Grad 1.9 mmHg AoV Mean Tobias. 0.83 m/s LVOT SV 70.68 mL AoV Mean Grad 3.2 mmHg LVOT Diam s 1.95 cm AoV Area (VTI) 2.66 cm2 AV Regurg Peak Gr. 6.04 mmHg Velocity Ratio 0.80 Mitral Valve MV DT 256 (160-240 msec) MV Vmax TIPS 0.79 m/s MV Mean Grad 1.2 (<2mmHg) MV VTI 0.247 m Pulmonary Valve PV Vmax 0.72 (0.5-1.5 m/s) RVOT Vmax 0.45 m/s PV Peak Grad 2.1 mmHg RVOT Peak Gr. 0.8 mmHg PV Mean Tobias 0.56 m/s RVOT VTI 0.117 m PV Mean Grad 1.4 mmHg RVOT Mean Gr. 0.4 mmHg Tricuspid Valve RA Pressure 3.00 mmHg TR Vmax 2.32 m/s TV S' 0.12 m/s TR Peak Grad 21.4 mmHg RVSP (TR) 24.5 mmHg
== END ==
LOC: DI 15:21
PROVIDERS: PCP Nurse Practitioner Family; Visit Provider Nurse Practitioner Family
DX: Q25.46 Tortuous aortic arch (principal); R07.89 Other chest pain; I34.0 Nonrheumatic mitral (valve) insufficiency
CPT/HCPCS: 93306